=== PATIENT | female | born 1985 | race African-American/Black ===

== ENCOUNTER 2017-04-20 16:37 | Emergency (ER) | payer MEDICAID, OTHER ==
[2017-04-20 19:26] LABS: Hematocrit 38 % (35-47); Hemoglobin 12.7 g/dl (12.0-16.0); Mean Corpuscular HGB Conc 33 g/dl (31-36); Mean Corpuscular Hemoglobin 25 pg (27-31); Mean Corpuscular Volume 75 fL (80-97); Mean Platelet Volume 7 um3 (7.4-10.4); Red Blood Count 5.13 10^6/ul (4.0-5.4); Red Cell Distribution Width 16 % (10.5-15); White Blood Count 10.7 10^3/ul (3.5-10.8)
--- NOTE | 2017-04-20 19:29 | ED ---
- HPI Summary HPI Summary: 31F at 5 weeks presents with vaginal bleeding and cramping for two days. LMP 12 Feb. Her pain radiates to back. She denies any fever. She denies any recent illness. She has had nausea and vomiting last week but not currently. She states the cramping started first. The bleeding has been spotting. She states the cramping has increased in intensity. She denies any palpitations, dizziness. [facility] and was sent here for further evaluation. She has history of ectopic last year needed surgery for. - History of Current Complaint Chief Complaint: EDVaginalBleeding Stated Complaint: AND BLEEDING VAGINALLY Time Seen by Provider: 04/20/17 19:17 Pain Intensity: 4 - Allergies/Home Medications Allergies/Adverse Reactions: Allergies Allergy/AdvReac Type Severity Reaction Status Date / Time Aspirin Allergy Bleeding Verified 04/20/17 16:40 PMH/Surg Hx/FS Hx/Imm Hx Endocrine/Hematology History: Reports: Other Endocrine/Hematological Disorders - sickle cell trait Cardiovascular History: Denies: Hx Hypertension Infectious Disease History: No Infectious Disease History: Denies: Traveled Outside the [place] in Last 30 Days - Family History Known Family History: Positive: Cardiac Disease - Social History Alcohol Use: Occasionally Substance Use Type: Reports: Marijuana Substance Use Comment - Amount & Last Used: occasionally Smoking Status (MU): Light Every Day Tobacco Smoker Review of Systems Negative: Fever Positive: Abdominal Pain - cramping, Vomiting, Nausea, Other - vaginal bleeding. Negative: Diarrhea Negative: dysuria All Other Systems Reviewed And Are Negative: Yes Physical Exam - Physical Exam Triage Information Reviewed: Yes Vital Signs Reviewed: Yes Appearance: Positive: Well-Appearing Skin: Positive: Warm, Dry Head/Face: Positive: Normal Head/Face Inspection Eyes: Positive: Normal, EOMI, DAVID, Conjunctiva Clear ENT: Positive: Normal ENT inspection, Pharynx normal, TMs normal Respiratory/Lung Sounds: Positive: Clear to Auscultation, Breath Sounds Present Cardiovascular: Positive: Normal, RRR Abdomen Description: Positive: Soft, Other: - mild pelvic tenderness Bowel Sounds: Positive: Present Diagnostics - Vital Signs Vital Signs Temp Pulse Resp BP Pulse Ox 04/20/17 19:00 73 103/52 99 04/20/17 18:30 77 107/48 99 04/20/17 18:04 76 93 04/20/17 18:02 102/57 04/20/17 16:40 98.1 F 67 16 120/73 100 - Laboratory Result Diagrams: 04/20/17 19:15 04/20/17 19:15 Lab Statement: Any lab studies that have been ordered have been reviewed, and results considered in the medical decision making process. - Ultrasound No standard instances Ultrasound Interpretation: Positive (See Comments) - IMPRESSION: No gestational sac or other products of conception are identified in this otherwise normal and age-appropriate pelvic ultrasound. Diagnostic possibilities include a too early to visualize, spontaneous or ectopic . Close maternal- follow-up including serial beta hCGs is advised. Ultrasound Interpretation Completed By: Radiologist Course/Dx - Course Course Of Treatment: 31F presents with vaginal bleeding and cramping for two days. LMP 12 Feb. Her pain radiates to back. She denies any fever. She denies any recent illness. She has had nausea and vomiting last week but not currently. She states the cramping started first. The bleeding has been spotting. She states the cramping has increased in intensity. She denies any palpitations, dizziness. She had an ectopic last year that required surgery. on exam has tenderness pelvic region. h/h stable. HCG 3778. o pos so no rhogram needed. u/s does not show any products on conception. explained could be early , miscarriage or ectopic. gave script for HCG [facility] patient understands and agrees with plan. - Differential Diagnosis/HQI/PQRI: Spontaneous , Threatened , Ectopic , Intrauterine - Diagnoses Provider Diagnoses: Vaginal bleeding in Discharge - Discharge Plan Condition: Good Disposition: HOME Patient Education Materials: Threatened Miscarriage (ED) Referrals: Non Staff,Doctor [Primary Care Provider] - Veronika Shelby MD [Medical Doctor] - Additional Instructions: The education provided is for your information. ultrasound did not show any products of conception it may be too early or products may have already passed but still is potential for ectopic. [facility] as will need repeat HCG level drawn to trend in 48 hours A script has been given for blood work needs to be completed in 2 days Return to ED if develop severe abdominal pain, fever, severe bleeding with symptoms such as lightheadedness or any new or worsening symptoms
[2017-04-20 19:33] LABS: Comments Flag Yes
[2017-04-20 19:48] LABS: Albumin 3.8 g/dL (3.2-5.2); BUN/Creatinine Ratio 18.7 (8-20); Calcium 9.3 mg/dL (8.6-10.3); EGFR African American 115.2 (>60); EGFR Non-African American 89.6 (>60); Globulin 2.9 g/dL (2-4); Potassium 3.5 mmol/L (3.5-5.0); Total Bilirubin 0.2 mg/dL (0.2-1.0); Total Protein 6.7 g/dL (6.4-8.9)
[2017-04-20 19:53] LABS: Urine Bacteria Absent (Absent); Urine Bilirubin Negative (Negative); Urine Glucose Negative (Negative); Urine Nitrite Negative (Negative)
[2017-04-20 20:51] VITALS: BP 96/64
--- NOTE | 2017-04-20 21:06 | RAD ---
HISTORY: Vaginal bleeding in a female COMPARISONS: None TECHNIQUE: Multiple transverse and longitudinal ultrasound images were obtained of the pelvis using grayscale, color flow, spectral and M-mode sonographic imaging. FINDINGS: UTERUS: The uterus is normal in shape, size, contour, and echotexture. GESTATION: There is no gestational sac, pole or yolk sac identified. At the fundal height uterus there is thickening of the endometrial stripe up to 1.4 cm. Uterus is otherwise normal in appearance. CUL-DE-SAC: There is no free fluid within the cul-de-sac. RIGHT OVARY: The right ovary measures 3.0 x 2.7 x 1.6 cm. LEFT OVARY: The left ovary measures 2.2 x 1.6 x 1.3 cm. IMPRESSION: No gestational sac or other products of conception are identified in this otherwise normal and age-appropriate pelvic ultrasound. Diagnostic possibilities include a too early to visualize, spontaneous or ectopic . Close maternal- follow-up including serial beta hCGs is advised.
== END 2017-04-20 21:47 | disposition home or self-care (01) ==
LOC: ED 16:37
DX: R10.9 Unspecified abdominal pain (principal); R11.2 Nausea with vomiting, unspecified; N93.9 Abnormal uterine and vaginal bleeding, unspecified; F17.210 Nicotine dependence, cigarettes, uncomplicated
CPT/HCPCS: 36415; 76817; 80053; 81003; 81015; 84702; 85027; 86703; 86900; 86901; 99282

== ENCOUNTER 2017-05-20 20:05 | Emergency (ER) | payer MEDICAID, OTHER ==
[2017-05-20] MEDS ORDERED: NS 0.9% 1000 ML* 1,000 ML IV ONE (21:15)
[2017-05-20] MEDS ORDERED: Ondansetron INJ* 2 MG/ML VIAL IV ONE (21:15)
[2017-05-20] MEDS ORDERED: HYDROmorphone INJ* 1 MG/ML CARPUJECT SYRINGE IV SLOW PU ONE (21:15)
[2017-05-20 21:58] LABS: Hematocrit 32 % (35-47); Hemoglobin 10.9 g/dl (12.0-16.0); Mean Corpuscular HGB Conc 34 g/dl (31-36); Mean Corpuscular Hemoglobin 25 pg (27-31); Mean Corpuscular Volume 74 fL (80-97); Mean Platelet Volume 7 um3 (7.4-10.4); Red Blood Count 4.35 10^6/ul (4.0-5.4); Red Cell Distribution Width 15 % (10.5-15); White Blood Count 11.8 10^3/ul (3.5-10.8)
[2017-05-20 22:00] LABS: Comments Flag Yes
[2017-05-20 22:14] LABS: BUN/Creatinine Ratio 16.5 (8-20); C Reactive Protein 10.85 mg/L (< 5.00); Calcium 9.1 mg/dL (8.6-10.3); EGFR African American 79.9 (>60); EGFR Non-African American 62.1 (>60); Total Bilirubin 0.3 mg/dL (0.2-1.0)
[2017-05-20] MEDS ORDERED: HYDROmorphone INJ* 2 MG/ML CARPUJECT SYRINGE ONE (22:48)
[2017-05-20 22:53] LABS: Urine Bacteria Absent (Absent); Urine Bilirubin Negative (Negative); Urine Glucose Negative (Negative); Urine Nitrite Negative (Negative)
[2017-05-20] MEDS ORDERED: cefTRIAXone(*) 1 GM in NS 0.9% 50 ML* 50 ML IVPB ONE (23:13)
--- NOTE | 2017-05-20 23:32 | ED ---
Lopez Brown Rebecca, scribed for Mckayla Sierra MD on 05/20/17 at 2111 . Abdominal Pain/Female - HPI Summary HPI Summary: Pt is a 31 y/ F who presents to ED c/o RUQ abdominal pain. Pain began 1 week ago s/p surgery to treat a ruptured ectopic that was in the R fallopian tube. Pain has been present since surgery, worsening in the last few days. On discharge from the hospital on 05/14 her pain was moderate, ranked 7/ 10 and it is now severe, ranked 9/10. Pt has been taking Percocet and Hydrocodone which slightly alleviate sx. Sx aggravated by nothing. Additionally c/o SOB which has improved. PMHx asthma. - History of Current Complaint Chief Complaint: EDAbdPain Stated Complaint: RECENT EPTOPIC ERRUPTION/PAIN Time Seen by Provider: 05/20/17 20:53 Hx Obtained From: Patient Onset/Duration: Lasting Weeks - 1 week, Still Present Severity Initially: Moderate - 7/10 Severity Currently: Severe Pain Intensity: 9 Pain Scale Used: 0-10 Numeric Location: Discrete At: RUQ Radiates: No Aggravating Factor(s): Nothing Alleviating Factor(s): Medications - Percocet and Hydrocodone Associated Signs and Symptoms: Positive: Other: - SOB Allergies/Adverse Reactions: Allergies Allergy/AdvReac Type Severity Reaction Status Date / Time Aspirin Allergy Bleeding Verified 05/20/17 20:12 PMH/Surg Hx/FS Hx/Imm Hx Endocrine/Hematology History: Reports: Other Endocrine/Hematological Disorders - sickle cell trait Cardiovascular History: Denies: Hx Hypertension Psychiatric History: Reports: Hx Depression Infectious Disease History: No Infectious Disease History: Denies: Traveled Outside the [place] in Last 30 Days - Family History Known Family History: Positive: Cardiac Disease, Respiratory Disease - asthma - Social History Alcohol Use: Occasionally Substance Use Type: Reports: Marijuana Substance Use Comment - Amount & Last Used: occasionally Smoking Status (MU): Light Every Day Tobacco Smoker Review of Systems Positive: Shortness Of Breath Positive: Abdominal Pain - RUQ pain All Other Systems Reviewed And Are Negative: Yes Physical Exam - Summary Physical Exam Summary: General: Well appearing, no pain distress Skin: Warm, Skin Color Reflects Adequate Perfusion, Dry Eyes: EOMI, DAVID ENT: Pharynx normal, TMs normal Neck: Supple, nontender Respiratory: CTA, breath sounds present, no rhonchi, no wheezes, no rales Cardiovascular: RRR, no murmur, no rub, no gallop, Abdomen: Soft, tender in the RUQ and RLQ, Non-distended, no guarding, no rebound Bowel: Present Musculoskeletal: BLAIR, No edema Neuro: Sensory/motor intact, A&Ox3, CN intact 2-12 Psych: Affect/mood appropriate4 Triage Information Reviewed: Yes Vital Signs On Initial Exam: Initial Vitals Temp Pulse Resp BP Pulse Ox 98.3 F 95 16 127/72 100 05/20/17 20:08 05/20/17 20:08 05/20/17 20:08 05/20/17 20:08 05/20/17 20:08 Vital Signs Reviewed: Yes Diagnostics - Vital Signs Vital Signs Temp Pulse Resp BP Pulse Ox 05/20/17 20:08 98.3 F 95 16 127/72 100 - Laboratory Lab Results: Lab Results 05/20/17 05/20/17 05/20/17 Range/Units 21:50 21:50 21:50 WBC 11.8 H (3.5-10.8) 10^3/ul RBC 4.35 (4.0-5.4) 10^6/ul Hgb 10.9 L (12.0-16.0) g/dl Hct 32 L (35-47) % MCV 74 L (80-97) fL MCH 25 L (27-31) pg MCHC 34 (31-36) g/dl RDW 15 (10.5-15) % Plt Count 460 H (150-450) 10^3/ul MPV 7 L (7.4-10.4) um3 Neut % (Auto) 70.6 (38-83) % Lymph % (Auto) 19.4 L (25-47) % Laurens % (Auto) 7.3 (1-9) % Eos % (Auto) 1.9 (0-6) % Baso % (Auto) 0.8 (0-2) % Absolute Neuts (auto) 8.3 H (1.5-7.7) 10^3/ul Absolute Lymphs (auto) 2.3 (1.0-4.8) 10^3/ul Absolute Monos (auto) 0.9 H (0-0.8) 10^3/ul Absolute Eos (auto) 0.2 (0-0.6) 10^3/ul Absolute Basos (auto) 0.1 (0-0.2) 10^3/ul Absolute Nucleated RBC 0 10^3/ul Nucleated RBC % 0 Sodium 137 (133-145) mmol/L Potassium 4.0 (3.5-5.0) mmol/L Chloride 103 (101-111) mmol/L Carbon Dioxide 26 (22-32) mmol/L Anion Gap 8 (2-11) mmol/L BUN 17 (6-24) mg/dL Creatinine 1.03 H (0.51-0.95) mg/dL Est GFR ( Amer) 79.9 (>60) Est GFR (Non-Af Amer) 62.1 (>60) BUN/Creatinine Ratio 16.5 (8-20) Glucose 78 (70-100) mg/dL Lactic Acid 1.1 (0.5-2.0) mmol/L Calcium 9.1 (8.6-10.3) mg/dL Total Bilirubin 0.30 (0.2-1.0) mg/dL AST 24 (13-39) U/L ALT 35 (7-52) U/L Alkaline Phosphatase 77 (34-104) U/L C-Reactive Protein 10.85 H (< 5.00) mg/L Total Protein 7.0 (6.4-8.9) g/dL Albumin 4.0 (3.2-5.2) g/dL Globulin 3.0 (2-4) g/dL Albumin/Globulin Ratio 1.3 (1-3) Lipase 25 (11.0-82.0) U/L Urine Color Urine Appearance Urine pH (5-9) Ur Specific Adams (1.010-1.030) Urine Protein (Negative) Urine Ketones (Negative) Urine Blood (Negative) Urine Nitrate (Negative) Urine Bilirubin (Negative) Urine Urobilinogen (Negative) Ur Leukocyte Esterase (Negative) Urine WBC (Auto) (Absent) Urine RBC (Auto) (Absent) Ur Squamous Epith Cells (Absent) Urine Bacteria (Absent) Urine Glucose (Negative) Urine Ascorbic Acid (Negative) 05/20/17 Range/Units 22:41 WBC (3.5-10.8) 10^3/ul RBC (4.0-5.4) 10^6/ul Hgb (12.0-16.0) g/dl Hct (35-47) % MCV (80-97) fL MCH (27-31) pg MCHC (31-36) g/dl RDW (10.5-15) % Plt Count (150-450) 10^3/ul MPV (7.4-10.4) um3 Neut % (Auto) (38-83) % Lymph % (Auto) (25-47) % Laurens % (Auto) (1-9) % Eos % (Auto) (0-6) % Baso % (Auto) (0-2) % Absolute Neuts (auto) (1.5-7.7) 10^3/ul Absolute Lymphs (auto) (1.0-4.8) 10^3/ul Absolute Monos (auto) (0-0.8) 10^3/ul Absolute Eos (auto) (0-0.6) 10^3/ul Absolute Basos (auto) (0-0.2) 10^3/ul Absolute Nucleated RBC 10^3/ul Nucleated RBC % Sodium (133-145) mmol/L Potassium (3.5-5.0) mmol/L Chloride (101-111) mmol/L Carbon Dioxide (22-32) mmol/L Anion Gap (2-11) mmol/L BUN (6-24) mg/dL Creatinine (0.51-0.95) mg/dL Est GFR ( Amer) (>60) Est GFR (Non-Af Amer) (>60) BUN/Creatinine Ratio (8-20) Glucose (70-100) mg/dL Lactic Acid (0.5-2.0) mmol/L Calcium (8.6-10.3) mg/dL Total Bilirubin (0.2-1.0) mg/dL AST (13-39) U/L ALT (7-52) U/L Alkaline Phosphatase (34-104) U/L C-Reactive Protein (< 5.00) mg/L Total Protein (6.4-8.9) g/dL Albumin (3.2-5.2) g/dL Globulin (2-4) g/dL Albumin/Globulin Ratio (1-3) Lipase (11.0-82.0) U/L Urine Color Yellow Urine Appearance Cloudy Urine pH 5.0 (5-9) Ur Specific Adams 1.028 (1.010-1.030) Urine Protein 1+(30 mg/dl) H (Negative) Urine Ketones Trace H (Negative) Urine Blood 3+ H (Negative) Urine Nitrate Negative (Negative) Urine Bilirubin Negative (Negative) Urine Urobilinogen Negative (Negative) Ur Leukocyte Esterase 2+ H (Negative) Urine WBC (Auto) 2+(11-20/hpf) H (Absent) Urine RBC (Auto) 2+(6-10/hpf) H (Absent) Ur Squamous Epith Cells Present H (Absent) Urine Bacteria Absent (Absent) Urine Glucose Negative (Negative) Urine Ascorbic Acid * H (Negative) Result Diagrams: 05/20/17 21:50 05/20/17 21:50 Lab Statement: Any lab studies that have been ordered have been reviewed, and results considered in the medical decision making process. - CT CT Abd/Pel CT Interpretation Completed By: Radiologist - Pending radiologist read. See [facility] for results. Re-Evaluation - Re-Evaluation First Eval Re-Evaluation Time: 23:26 Comment: Discussed results with the pt. Abdominal Pain Fem Course/Dx - Course Course Of Treatment: 31 yo female s/p ectopic with ongoing abd pain rt lower quadrante and ruq she did have laproscopic surgery and reports there was 1l of fluid in her pelvis. She has a uti here and is being treated for such. She is awaiting a CT abd/pelvis and will be signed out to Dr. Rayo - Diagnoses Provider Diagnoses: Abdominal pain, UTI (urinary tract infection) Discharge - Discharge Plan Condition: Stable Disposition: HOME Prescriptions: Cephalexin CAP* [Keflex CAP*] 500 mg PO QID #28 cap oxyCODONE/Acetamin 10/325(NF) [Percocet 10/325 (NF)] 1 tab PO Q4H #18 tab MDD 6 Patient Education Materials: Abdominal Pain (ED), Urinary Tract Infection in Women (ED) Referrals: Non Staff,Doctor [Primary Care Provider] - 3 Days The documentation as recorded by the Lopez tadeo Rebecca accurately reflects the service I personally performed and the decisions made by me, Mckayla Sierra MD.
[2017-05-20 23:54] VITALS: BP 99/69
[2017-05-20] MEDS ORDERED: Iohexol 300* (CONTRAST) 10 ML SDV IV ONE (23:56)
--- NOTE | 2017-05-21 08:34 | RAD ---
INDICATION: Surgery for ectopic one week ago. Increasing pain. COMPARISON: April 20, 2017 TECHNIQUE: Multidetector CT images were obtained from the lung bases to the ischial tuberosities with 93 mL Omnipaque 300 IV and oral contrast. Multiplanar reformation. REPORT: Minimal basilar atelectasis. Negative for pleural effusions. The liver, gallbladder, pancreas, and spleen are unremarkable. Negative for CT abnormality of the upper GI, small bowel, retrocecal appendix, colon. Moderate stool present throughout the colon. Small volume of free pelvic fluid. Negative for free air or hernias. Normal adrenal glands. Unremarkable kidneys with symmetric nephrograms and pyelograms. Unremarkable ureters and partially distended urinary bladder. Mild rightward deviation of anteverted uterus. 1.1 cm follicle visualized at the RIGHT ovary without concern. Small volume of fluid in the cul-de-sac and RIGHT adnexal region measuring denser than water. No loculated hematoma or abscess evident. Negative for lymphadenopathy. Unremarkable abdominal aorta and iliac arteries. Physiologic partial distention of the IVC. Negative for suspicious osseous lesions. IMPRESSION: Small volume of hyperdense relative to water fluid in the cul-de-sac and RIGHT adnexal region which while nonspecific may represent blood products or may be purulent. No loculated abscess or hematoma evident.
--- NOTE | 2017-05-23 02:46 | ED ---
Kathryn Brown Edward, scribed for Lorne Rayo on 05/21/17 at 0055 . Progress - Progress Note Progress Note: Pt signed out by Dr. Sierra pending CT results. - Results/Orders Results/Orders: ABD/PEL CT - There is mild dense ascites around the uterus and left adnexa. Although mild, hte density of the ascites suggests hemorrhage. Dense ascites can also be purulent. Hemorrhagic ascites one week after srugery should be viewed with suspicion and evaluated. Ultrasound may be helpful. No bowel obstruction, free air or free fluid. Negative for diverticulitis or colitis. Normal appendix Re-Evaluation - Re-Evaluation First Eval Re-Evaluation Time: 23:26 Comment: Discussed results with the pt. 2 Comment: Discuss plan of care Course/Dx - Course Course Of Treatment: Started paging Ob-Medical Dir starting at 00:56 and they have not responded for the past hour. Spoke with Dr. Dinero @ 13:55. Dr. Dinero recommended abx and pain medications for pt to f/u as an outpatient. Pt will be d/c home. - Diagnoses Provider Diagnoses: Abdominal pain, UTI (urinary tract infection), status post ectopic surgery - Provider Notifications Discussed Care Of Patient With: Deepak Dinero Time Discussed With Above Provider: 13:55 Instructed by Provider To: Other - F/u as outpatient with pain meds and abx The documentation as recorded by the Kathryn tadeo Edward accurately reflects the service I personally performed and the decisions made by , Lorne Rayo.
== END 2017-05-21 02:06 | disposition home or self-care (01) ==
LOC: ED 20:05
DX: R10.11 Right upper quadrant pain (principal); N39.0 Urinary tract infection, site not specified; Z72.0 Tobacco use; J45.909 Unspecified asthma, uncomplicated; F32.9 Major depressive disorder, single episode, unspecified; R18.8 Other ascites; Z98.890 Other specified postprocedural states
CPT/HCPCS: 36415; 74177; 80053; 81003; 81015; 83605; 83690; 85025; 86140; 87086; 96360; 96374; 96375; 96376; 99283; J0696; J1170; J2405; Q9967

== ENCOUNTER 2018-01-10 10:22 | Emergency (ER) | payer OTHER ==
--- NOTE | 2018-01-10 12:57 | UC ---
Abdominal Pain Female HPI - HPI Summary HPI Summary: 32 y/o female presents to the urgent care c/o acute flank pain and RLQ and epigastric pain for the past 2 days. Pt reports she diarheal stool x 3 days right flank pain and abd pain - History of Current Complaint Chief Complaint: UCGeneralIllness Stated Complaint: BACK PAIN,VOMITING Time Seen by Provider: 01/10/18 12:42 Hx Obtained From: Patient Hx Last Menstrual Period: 12/19/17 Onset/Duration: Gradual Onset, Lasting Days - 2 days, Worse Since - today Timing: Intermittent Episodes Lasting: Severity Initially: Mild Severity Currently: Moderate Pain Intensity: 8 Pain Scale Used: 0-10 Numeric Location: Discrete At: RLQ, Epigastric, Other - periumbilical and RT Flank pain Radiates: Yes Radiates to: Other - pelvic pain Aggravating Factor(s): Movement Alleviating Factor(s): Vomiting - this morning bile Associated Signs and Symptoms: Positive: Nausea, Vomiting, Diarrhea - 2 days of diarrhea which resolve today - Risk Factors Ectopic Risk Factor: Prior Ectopic Ovarian Torsion Risk Factor: Reproductive Age Allergies/Adverse Reactions: Allergies Allergy/AdvReac Type Severity Reaction Status Date / Time No Known Allergies Allergy Verified 01/10/18 10:42 Home Medications: Home Medications NK [No Home Medications Reported] 01/10/18 [History Confirmed 01/10/18] PMH/Surg Hx/FS Hx/Imm Hx - Surgical History Surgical History: Yes Surgery Procedure, Year, and Place: ECTOPIC 05/16 - Family History Known Family History: Positive: Cardiac Disease, Respiratory Disease - asthma - Social History Alcohol Use: Occasionally Substance Use Type: Marijuana Substance Use Comment - Amount & Last Used: occasionally Smoking Status (MU): Current Every Day Smoker Physical Exam - Summary Physical Exam Summary: Vital Signs Reviewed: Yes General:Patient is a well developed and nourished female who is sitting comfortable in the examining table. Patient is not in any acute respiratory distress. Eyes: Positive: Conjunctiva Clear - PERRLA, EOMI, fundi grossly normal ENT: Positive: Normal ENT inspection, Hearing grossly normal, Pharynx normal, TMs normal Neck: Positive: Supple, Nontender, No Lymphadenopathy Respiratory: Positive: Chest non-tender, Lungs clear, Normal breath sounds, No respiratory distress Cardiovascular: Positive: RRR,S1 and S2 present, No Murmur, Pulses Normal, Brisk Capillary Refill Abdomen Description: Positive: Nontender, Abd: Flat with no distention. No surface trauma, scars, incisions. hyperactive bowel sounds present in all four quadrants. RLQ abdominal tenderness, w/ mild guarding, no rigidity to palpation. No masses palpated, no pulsation in epigastric area. No organomegaly. Negative [place] signs. Positive periumbilical tenderness. No rebound in the lower quadrants. Positive over McBurneys point. Posite RT CVA tenderness on percussion. Good femoral pulses bilaterally. No hernia noted. No CVAT bilaterally Musculoskeletal: Positive: Strength Intact, ROM Intact, No Edema,FROM in all major joints, no edema, no cyanosis or clubbing. Neuro: Alert and oriented x 3. No acute neurological deficits. Speech is normal. Psychological: WNL Skin: Dry and warm Triage Information Reviewed: Yes Vital Signs: Initial Vital Signs Temp 98.2 F 01/10/18 10:38 Pulse 67 01/10/18 10:38 Resp 16 01/10/18 10:38 BP 116/79 01/10/18 10:38 Pulse Ox 100 01/10/18 10:38 Abd Pain Female Course/Dx - Differential Dx/Diagnosis Differential Diagnosis: Appendicitis, Ovarian Cyst, Pelvic Inflammatory Disease , , Renal Colic, Urinary Tract Infection Provider Diagnoses: 1- Acute LLQ abdominal pain. 2-Acute Nausea and vomiting Discharge - Discharge Plan Condition: Stable Disposition: TRANS HIGHER LVL OF CARE FAC Patient Education Materials: Acute Abdominal Pain (ED) Referrals: [facility] [Outside] Additional Instructions: I think you need a higher level or care for your presenting symptoms RLQ abdominal pain. I highly recommend you to go to the ER for further evaluation and treatment. The risks of not going can be , peritonitis, ectopic , sepsis,etc. I spoke to the ER attending NIYA Brandon . They are expecting you. - Billing Disposition and Condition Condition: STABLE Disposition: Trans Higher Lvl of Care Fac
[2018-01-10 13:03] VITALS: BP 129/84
== END 2018-01-10 13:30 | disposition short-term general hospital (02) ==
LOC: UCEAST 10:22
DX: R10.32 Left lower quadrant pain (principal); R11.2 Nausea with vomiting, unspecified; F17.200 Nicotine dependence, unspecified, uncomplicated
CPT/HCPCS: 81003; 84702; 99211; G0463

== ENCOUNTER 2018-01-10 13:48 | Emergency (ER) | payer SELFPAY ==
[2018-01-10] MEDS ORDERED: Ketorolac INJ* 30 MG/ML 1 ML VIAL IV PUSH ONE (14:28)
[2018-01-10] MEDS ORDERED: Ondansetron ODT TAB* 4 MG PO ONE (14:28)
[2018-01-10 15:09] LABS: ABS Basophils 0.1 10^3/ul (0-0.2); ABS Eosinophils 0.2 10^3/ul (0-0.6); ABS Lymphocytes 2.4 10^3/ul (1.0-4.8); ABS Monocytes 0.7 10^3/ul (0-0.8); ABS Neutrophils 5.2 10^3/ul (1.5-7.7); ABS Nucleated RBC 0 10^3/ul; Eosinophil % 2.1 % (0-6); Hematocrit 42 % (35-47); Hemoglobin 13.9 g/dl (12.0-16.0); Lymphocyte % 28.1 % (25-47); Mean Corpuscular HGB Conc 33 g/dl (31-36); Mean Corpuscular Hemoglobin 24 pg (27-31); Mean Corpuscular Volume 73 fL (80-97); Mean Platelet Volume 7.3 um3 (7.4-10.4); Nucleated Red Blood Cells % 0.1; Platelet Count 358 10^3/ul (150-450); Red Blood Count 5.69 10^6/ul (4.00-5.40); Red Cell Distribution Width 15 % (10.5-15); White Blood Count 8.5 10^3/ul (3.5-10.8)
[2018-01-10 15:24] LABS: EGFR Non-African American 82.6 (>60)
[2018-01-10] MEDS ORDERED: Iohexol 300* (CONTRAST) 10 ML SDV IV ONE (15:43)
--- NOTE | 2018-01-10 17:05 | RAD ---
INDICATION: Right lower quadrant pain. COMPARISON: Comparison is made with a prior CT of the abdomen and pelvis from May 21, 2017. TECHNIQUE: A CT scan of the abdomen and pelvis was performed with intravenous and with oral contrast following intravenous injection of 93 ml of Omnipaque 300 nonionic contrast. Contiguous axial sections were obtained from the lung bases through the symphysis pubis. Images were reconstructed in the coronal and sagittal planes. FINDINGS: The lung bases are clear. No pleural effusion is present. The liver and spleen are within normal limits in size without significant focal abnormality. No calcified gallstones are seen. The pancreas appears to be within normal limits in size. The kidneys and adrenal glands are normal in size. No hydronephrosis is seen. No significant focal renal abnormality is seen. The aorta is normal in caliber and demonstrates homogeneous contrast opacification. No significant enlarged retroperitoneal lymph nodes are seen. The stomach, small and large bowel appear nondistended. The appendix is within normal limits. There are scattered diverticuli throughout the colon. There is no evidence for diverticulitis or colitis. The uterus is anteverted and normal in size. There is a 3.1 cm right ovarian cyst. The right ovary is located slightly more superior and central location than typical. The left ovary appears be in normal position. No free intraperitoneal air or fluid is seen. No significant focal osseous abnormality is seen. IMPRESSION: 1. NO EVIDENCE FOR APPENDICITIS. 2. THE RIGHT OVARY IS SOMEWHAT ATYPICAL IN LOCATION DESCRIBED WITH A 3.1 CM CYST. RECOMMEND A PELVIC ULTRASOUND FOR FURTHER EVALUATION TO EXCLUDE TORSION.
--- NOTE | 2018-01-10 17:24 | ED ---
Abdominal Pain/Female - HPI Summary HPI Summary: Patient is a 32-year-old female who presents emergency department for right- sided abdominal pain times one week. Pain is intermittent and sharp in nature. Pain became worse today the patient presented to the ER for evaluation. She denies fever, chills, upper respiratory symptoms, diarrhea, constipation, urinary symptoms, vaginal discharge or bleeding. She does admit to nausea and vomiting. She has no significant past medical history other than history of ectopic . No current modifying factors. Patient states she recently moved to the area from [facility] and does not have a PCP or SOB. - History of Current Complaint Chief Complaint: EDFlankPain Stated Complaint: RT FLANK PAIN Time Seen by Provider: 01/10/18 14:14 Hx Obtained From: Patient Hx Last Menstrual Period: 12/19/17 Pain Intensity: 8 Allergies/Adverse Reactions: Allergies Allergy/AdvReac Type Severity Reaction Status Date / Time No Known Allergies Allergy Verified 01/10/18 10:42 PMH/Surg Hx/FS Hx/Imm Hx Previously Healthy: Yes Endocrine/Hematology History: Reports: Other Endocrine/Hematological Disorders - sickle cell trait Denies: Hx Diabetes Cardiovascular History: Denies: Hx Hypertension History: Denies: Hx Dialysis, Hx Renal Disease Psychiatric History: Reports: Hx Depression - Surgical History Surgery Procedure, Year, and Place: ECTOPIC 05/16 - Immunization History Immunizations Up to Date: Yes Infectious Disease History: No Infectious Disease History: Denies: Traveled Outside the [place] in Last 30 Days - Family History Known Family History: Positive: Cardiac Disease, Respiratory Disease - asthma - Social History Alcohol Use: Occasionally Hx Substance Use: Yes Substance Use Type: Reports: None Substance Use Comment - Amount & Last Used: occasionally Hx Tobacco Use: Yes Smoking Status (MU): Current Every Day Smoker Review of Systems Constitutional: Negative Negative: Fever, Chills Eyes: Negative ENT: Negative Cardiovascular: Negative Respiratory: Negative Positive: Abdominal Pain, Vomiting, Nausea. Negative: Diarrhea Positive: flank pain. Negative: burning, dysuria, discharge, frequency Neurological: Negative All Other Systems Reviewed And Are Negative: Yes Physical Exam Triage Information Reviewed: Yes Vital Signs On Initial Exam: Initial Vitals Temp Pulse Resp BP Pulse Ox 97.8 F 63 16 134/83 99 01/10/18 13:57 01/10/18 13:57 01/10/18 13:57 01/10/18 13:57 01/10/18 13:57 Vital Signs Reviewed: Yes Appearance: Positive: Well-Appearing - Patient sitting up in bed in no acute distress. Skin: Positive: Warm, Dry Head/Face: Positive: Normal Head/Face Inspection Eyes: Positive: Normal Neck: Positive: Supple Respiratory/Lung Sounds: Positive: Clear to Auscultation, Breath Sounds Present Cardiovascular: Positive: Normal, RRR Abdomen Description: Positive: Other: - Abdomen is soft with tenderness and guarding to the right lower quadrant. No rebound tenderness. No rigidity. Neurological: Positive: Normal, CN Intact II-III Psychiatric: Positive: Affect/Mood Appropriate Diagnostics - Vital Signs Vital Signs Temp Pulse Resp BP Pulse Ox 01/10/18 13:57 97.8 F 63 16 134/83 99 - Laboratory Lab Results: Lab Results 01/10/18 01/10/18 01/10/18 Range/Units 14:46 14:46 14:46 WBC 8.5 (3.5-10.8) 10^3/ul RBC 5.69 H (4.00-5.40) 10^6/ul Hgb 13.9 (12.0-16.0) g/dl Hct 42 (35-47) % MCV 73 L (80-97) fL MCH 24 L (27-31) pg MCHC 33 (31-36) g/dl RDW 15 (10.5-15) % Plt Count 358 (150-450) 10^3/ul MPV 7.3 L (7.4-10.4) um3 Neut % (Auto) 60.9 (38-83) % Lymph % (Auto) 28.1 (25-47) % [place] % (Auto) 8.0 H (0-7) % Eos % (Auto) 2.1 (0-6) % Baso % (Auto) 0.9 (0-2) % Absolute Neuts (auto) 5.2 (1.5-7.7) 10^3/ul Absolute Lymphs (auto) 2.4 (1.0-4.8) 10^3/ul Absolute Monos (auto) 0.7 (0-0.8) 10^3/ul Absolute Eos (auto) 0.2 (0-0.6) 10^3/ul Absolute Basos (auto) 0.1 (0-0.2) 10^3/ul Absolute Nucleated RBC 0 10^3/ul Nucleated RBC % 0.1 Sodium 137 L (139-145) mmol/L Potassium 3.7 (3.5-5.0) mmol/L Chloride 103 (101-111) mmol/L Carbon Dioxide 27 (22-32) mmol/L Anion Gap 7 (2-11) mmol/L BUN 12 (6-24) mg/dL Creatinine 0.80 (0.51-0.95) mg/dL Est GFR ( Amer) 106.2 (>60) Est GFR (Non-Af Amer) 82.6 (>60) BUN/Creatinine Ratio 15.0 (8-20) Glucose 95 (70-100) mg/dL Lactic Acid 0.6 (0.5-2.0) mmol/L Calcium 9.6 (8.6-10.3) mg/dL Total Bilirubin 0.30 (0.2-1.0) mg/dL AST 26 (13-39) U/L ALT 31 (7-52) U/L Alkaline Phosphatase 80 (34-104) U/L C-Reactive Protein < 1.00 (< 5.00) mg/L Total Protein 7.3 (6.4-8.9) g/dL Albumin 4.2 (3.2-5.2) g/dL Globulin 3.1 (2-4) g/dL Albumin/Globulin Ratio 1.4 (1-3) Lipase 30 (11.0-82.0) U/L Beta HCG, Quant 0.66 mIU/mL Result Diagrams: 01/10/18 14:46 01/10/18 14:46 Lab Statement: Any lab studies that have been ordered have been reviewed, and results considered in the medical decision making process. Abdominal Pain Fem Course/Dx - Course Course Of Treatment: Patient presenting to the ER with a week history of right lower quadrant abdominal pain and intermittent nausea vomiting. She is afebrile with stable vital signs. Blood work and CT scan were ordered for further evaluation. Patient was given IV fluids, Zofran and Toradol. CBC and CMP are unremarkable. Negative . CT scan reading per radiology: IMPRESSION: 1. NO EVIDENCE FOR APPENDICITIS. 2. THE RIGHT OVARY IS SOMEWHAT ATYPICAL IN LOCATION DESCRIBED WITH A 3.1 CM CYST. RECOMMEND A PELVIC ULTRASOUND FOR FURTHER EVALUATION TO EXCLUDE TORSION. Reexamination patient's pain has improved. Results were discussed with her. Suspect right lower quadrant pain is secondary to this 3 cm cyst. Given questional possibility of ovarian torsion Will order a pelvic ultrasound for further evaluation. Suspicion for torsion is low given patient's pain has been going on for about a week and has improved. Pending urinalysis as well. Patient will be signed out to EMILY, Juan Zamora, for ultrasound and urinalysis results and appropriate disposition. - Diagnoses Differential Diagnosis: Positive: Appendicitis, Constipation, Diverticulitis, Ectopic , Ovarian Cyst, Provider Diagnoses: Ovarian cyst Discharge - Sign-Out/Discharge Documenting (check all that apply): Discharge/Admit/Transfer, Sign-Out Patient Signing out patient TO: Juan Zamora - Discharge Plan Condition: Good Disposition: HOME Patient Education Materials: Ovarian Cyst (ED) Referrals: No Primary Care Phys,NOPCP [Primary Care Provider] - Ranjana Rollins MD [Medical Doctor] - Additional Instructions: Call Dr. Rollins's office for a follow up appointment Naproxen as directed for pain Apply warm compresses to pelvis Return to ER if symptoms change or worsen - Billing Disposition and Condition Condition: GOOD Disposition: Home
[2018-01-10 17:25] LABS: Urine Appearance Clear; Urine Blood Negative (Negative); Urine Color Straw; Urine Ketones Negative (Negative); Urine Protein Negative (Negative); Urine Specific Gravity 1.006 (1.010-1.030); Urine Urobilinogen Negative (Negative)
--- NOTE | 2018-01-10 18:19 | RAD ---
INDICATION: Right ovarian cyst, evaluate for torsion. COMPARISON: Comparison is made with a prior CT of the abdomen and pelvis from January 10, 2018. TECHNIQUE: Multiple real-time transvaginal images of the pelvis were obtained. FINDINGS: The uterus is normal in size, shape and echogenicity. The uterus measured 6.0 x 3.0 x 3.7 cm. The endometrial echo measured 0.9 cm in thickness. The right ovary measured 3.4 x 2.5 x 3.7 cm. The left ovary measured 2.3 x 1.5 x 1.5 cm. There is vascular flow within both ovaries. There are 2 right ovarian cysts measuring 2.2 x 2.2 x 2.1 and 1.9 x 2.3 x 2.6. The second cyst is slightly complex. No free intraperitoneal fluid is seen. IMPRESSION: RIGHT OVARIAN CYSTS DESCRIBED, NO EVIDENCE FOR OVARIAN TORSION.
[2018-01-10 18:56] VITALS: BP 126/67
--- NOTE | 2018-01-10 20:31 | PN ---
Progress Note - Progress Note Date of Service: 01/10/18 Note: Patient was signed out to me by Aleksandr Khoury as US TV and urine was still pending. US TV negative for torsion, UA negative. CT abdomen and pelvis was negative for acute process other than ovarian cyst. Labs unremarkable. Patient discharged with diagnosis of ovarian cyst with Rx for naproxen and recommendation to follow-up with MANUGRAPHER. Patient vital signs normal and stable. Pain controlled.
== END 2018-01-10 18:56 | disposition home or self-care (01) ==
LOC: ED 13:48
DX: N83.209 Unspecified ovarian cyst, unspecified side (principal); R10.84 Generalized abdominal pain; F17.210 Nicotine dependence, cigarettes, uncomplicated; R11.2 Nausea with vomiting, unspecified
CPT/HCPCS: 36415; 74177; 76830; 80053; 81003; 83605; 83690; 84702; 85025; 86140; 96374; 99282; A9270-GY; J1885; Q9967

== ENCOUNTER 2018-04-21 11:12 | Emergency (ER) | payer OTHER ==
--- OUTSIDE RECORDS SUMMARY | 2018-04-21 11:34 | XMS REPORT ---
:1985 External Reference #:[id number] Author Organization [facility] Address [address] [place] [address] Phone [phone] Care Team Providers Name Role Phone Danial Keita MD Care Team Information Lacer And Tier Unavailable Danial Keita MD Primary Care Physician Unavailable Payers Type Date Identification Numbers Payment Provider Subscriber Health Maintenance Effective: Policy Number: Bart Hope Organization (O) 07/31/2017 [id number] [employer] Number: [id number] [id number] PayID: [id number] [place] [address] Problems Description No Information Social History Type Date Description Comments Smoking Heavy tobacco smoker (more than 10 cigarettes/day) Allergies, Adverse Reactions, Alerts Date Description Reaction Status Severity Comments 04/18/2018 NKDA active Medications Medication Date Status Form Strength Qnty SIG Indications Ordering Provider Nebulizer Set 1units disp one Blanquita Culver Up And Tubing 2018 for Neela terrazas MD use at home, dx: copd dx j45.4 last office visit 04/18/18 Ventolin HFA Aerosol 108(90Base 8gm 2 puffs Blanquita Culver 2018 ) mcg/Act every 4 Neela hours MD bulmaro needed Spacer For use with Blanquita Culver Mdi 2018 mindy Keita MD Albuterol Active Nebulizer (2.5mg/3ML 75ml one dose Blanquita Culver Sulfate 2017 ) 0.083% every 4 Neela hours MD nebulized as needed. Flovent HFA 04/18/ Active Aerosol 220mcg/Act 36gm inhale one J45.40 Danial Culver 2018 puff by Neela mouth twice MD a day Chantix 04/18/ Active Tablets 0.5mg X 11 1tabs use as F17.210 Danial Culver Starting 2018 & 1 mg X directed Neela Henderson 42 MD Chantix 04/18/ Active Tablets 1mg 56tabs 1 by mouth F17.210 Danial Culver Continuing 2018 twice a day Neela Henderson MD Prednisone / Active Tablets 20mg take 1 by Unknown 0000 mouth as one dose daily Proair HFA / Active Aerosol 108(90Base 2 puffs Unknown 0000 ) mcg/Act every 4-6 hours as needed for SOB Immunizations CPT Code Status Date Vaccine Lot # [id number] Given 04/18/2018 Tdap Tetanus, W Pertussis [id number] Given 04/18/2018 Influenza Vac, Quadrivalent, Slit Virus, [id number] Vital Signs Date Vital Result Comment 04/18/2018 BP Systolic 128 mmHg BP Diastolic 80 mmHg Heart Rate 72 /min Body Temperature 99.0 F Respiratory Rate 16 /min Height 63.5 inches 5'3.50" Weight 157.50 lb BMI (Body Mass Index) 27.5 kg/m2 Results Test Date Test Result H/L Range Note Comprehensive Metabolic Prof 04/04/2018 Sodium 139 mEq/L 134-149 Potassium 4.2 mEq/L 3.6-5.5 Chloride 107 mEq/L 94-112 Carbon Dioxide 21 mEq/L 21-32 Glucose 104 mg/dL 70-105 BUN 15 mg/dL 6-26 Creatinine 0.9 mg/dL 0.6-1.4 BUN/Creat Ratio 16.7 CALC 8.0-36.0 Calcium 9.8 mg/dL 8.6-10.2 Total Protein 7.5 g/dL 6.4-8.3 Albumin 4.9 g/dL 3.8-5.5 Globulin 2.6 g/dL 2.0-4.8 A/G Ratio 1.9 CALC 0.6-2.3 Alk. Phosphatase 91 U/L 30-110 Alt (SGPT) 26 U/L 7-35 Ast (Sgot) 22 U/L 5-34 Total Bilirubin 0.2 mg/dL 0.2-1.3 GFR Non- >60 ml/min/1.73m^ >=60 GFR >60 ml/min/1.73m^ >=60 CBC Electronic Fma 04/04/2018 WBC 8.4 x10^3/UL 4.0-10.0 RBC 5.68 x10^6/UL 3.93-6.00 HGB 13.7 g/dL 12.0-17.0 HCT 41 % 35-50 MCV 72.5 fL Low 80.0-95.0 MCH 24.1 pg Low 25.6-32.2 MCHC 33.3 g/dL 32.2-36.0 RDW-CV 16.4 % High 11.6-14.4 PLT 389 x10^3/UL 163-400 MPV 9.4 fL 9.4-12.4 Gildardo# 5.00 x10^3/UL 1.56-6.13 Lymph# 2.22 x10^3/UL 1.18-3.74 Price# 0.80 x10^3/UL 0.24-0.82 Eos # 0.3 x10^3/UL 0.0-0.5 Baso # 0.05 x10^3/UL 0.01-0.08 Gildardo% 59.7 % 34.0-70.0 Lymph % 26.5 % 20.0-52.0 Price% 9.5 % 5.0-12.0 Eos% 3.6 % 0.7-7.0 Baso% 0.6 % 0.1-1.2 Lipid Profile 04/04/2018 Cholesterol 193 mg/dL 120-200 Triglycerides 84 mg/dL 30-200 HDL Cholesterol 56 mg/dL 30-85 LDL (Calculated) 120 CALC 0-129 VLDL Cholesterol 17 mg/dL 0-50 HDL Risk Factor 3.4 CALC 0.0-4.4 Procedures Description No Information Plan of Care Future Appointment(s):05/17/2018 9:00 am - Danial Keita MD at [facility]3504/18/2018 - Danial Keita MDZ00.00 Encntr for general adult medical exam w/o abnormal findingsImmunizations/Injections:Tdap Tetanus, W PwbubndtdA36.40 Moderate persistent asthma, uncomplicatedNew Medication: Nebulizer Set Up And TubingVentolin HFA 108(90 Base) mcg/ActSpacer For MdiAlbuterol Sulfate (2.5 mg/3ML) 0.083%Flovent HFA 220 mcg/ActFollow up:one month.F17.210 Nicotine dependence, cigarettes, uncomplicatedNew Medication: Chantix Starting Month Santiago 0.5 mg X 11 & 1 mg X 42Chantix Continuing Month Santiago 1 mgAllComments:~B_~U_Medication Management~b_~u_ Patient Understands medications she's taking? Yes No Are there Barriers to Adherence? Yes No Has the patient been asked about herbal supplements and therapies, and OTC meds? Yes No
--- NOTE | 2018-04-21 12:56 | ED ---
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 Pt saw her PCP yesterday who gave her a nebulizer but it is not providing relief. Associated sx: productive cough (white phlegm). Last week, she had a fever and flu-symptoms and has been having asthmatic attacks since. She has been hospitalized for her asthma but has never had an intubation. She is a former smoker, who quit one week ago. Denies rec drugs, eTOH. She had a D&C in February for miscarriage. - History of Current Complaint Chief Complaint: EDAsthma Stated Complaint: DIFF BREATHING/ASTHMA Time Seen by Provider: 04/21/18 12:33 Hx Obtained From: Patient Onset/Duration: Lasting Days, Still Present Timing: Constant Current Severity: Severe Pain Intensity: 10 - out of 10 Character: Wheezing, Cough (Productive) Sputum Color: White Aggravating Factor(s): Recumbent Position Alleviating Factor(s): Nothing - Allergy/Home Medications Allergies/Adverse Reactions: Allergies Allergy/AdvReac Type Severity Reaction Status Date / Time No Known Allergies Allergy Verified 01/10/18 10:42 PMH/Surg Hx/FS Hx/Imm Hx Previously Healthy: No Endocrine/Hematology History: Reports: Other Endocrine/Hematological Disorders - sickle cell trait Denies: Hx Diabetes Cardiovascular History: Denies: Hx Hypertension Respiratory History: Reports: Hx Asthma History: Denies: Hx Dialysis, Hx Renal Disease Psychiatric History: Reports: Hx Depression - Surgical History Surgery Procedure, Year, and Place: ECTOPIC 05/16 - Immunization History Date of Tetanus Vaccine: 04/17/2018 Date of Influenza Vaccine: 04/17/2018 Immunizations Up to Date: Yes Infectious Disease History: No Infectious Disease History: Denies: Traveled Outside the [place] in Last 30 Days - Family History Known Family History: Positive: Cardiac Disease, Respiratory Disease - asthma - Social History Occupation: Employed Full-time Lives: With Family Alcohol Use: Occasionally Alcohol Amount: "socially" Hx Substance Use: Yes Substance Use Type: Reports: None Substance Use Comment - Amount & Last Used: occasionally Hx Tobacco Use: Yes Smoking Status (MU): Former Smoker Review of Systems Positive: Fever - last week Positive: Cough - productive, Other - pos: dyspnea All Other Systems Reviewed And Are Negative: Yes Physical Exam - Summary Physical Exam Summary: GENERAL: Patient is a well-developed and nourished F who is lying comfortable in the stretcher. Patient is not in any acute respiratory distress. HEAD AND FACE: Normocephalic EYES: PERRLA, EOMI x 2. EARS: Hearing grossly intact. MOUTH: Oropharynx within normal limits. NECK: Supple, trachea is midline, no adenopathy, no JVD, no carotid bruit. CHEST: Symmetric, no tenderness at palpation LUNGS: Very wheezy, good air entry. CVS: Regular rate and rhythm, S1 and S2 present, no murmurs or gallops appreciated. ABDOMEN: Soft, non-tender. Bowel sounds are normal. No abdominal abnormal pulsations. EXTREMITIES: Full ROM in all major joints, no edema, no cyanosis or clubbing. NEURO: Alert and oriented x 3. No acute neurological deficits. Speech is normal and follows commands. SKIN: Dry and warm Triage Information Reviewed: Yes Vital Signs On Initial Exam: Initial Vitals Temp Pulse Resp BP Pulse Ox 98.0 F 78 18 122/69 98 04/21/18 11:21 04/21/18 11:21 04/21/18 11:21 04/21/18 11:21 04/21/18 11:21 Vital Signs Reviewed: Yes Diagnostics - Vital Signs Vital Signs Temp Pulse Resp BP Pulse Ox 04/21/18 11:21 98.0 F 78 18 122/69 98 - Laboratory Result Diagrams: 04/21/18 12:56 04/21/18 12:56 Lab Statement: Any lab studies that have been ordered have been reviewed, and results considered in the medical decision making process. - Radiology CXR Xray Interpretation: No Acute Changes - IMPRESSION: No radiographic evidence of acute cardiopulmonary dz. ED provider has reviewed this report. Radiology Interpretation Completed By: Radiologist Disposition - Course Course Of Treatment: A 32 y/o F with pert PMHx: asthma presents to ED with dyspnea and asthmatic episodes for past week and worsening today. Workup is unremarkable. The patient will be discharged. I discussed results with patient and she reports feeling better. She is hemodynamically stable and safe for discharge. Strict return precautions given and she will otherwise follow up with her PCP. - Diagnoses Provider Diagnoses: Asthma exacerbation Discharge - Sign-Out/Discharge Documenting (check all that apply): Patient Departure - DC - Discharge Plan Condition: Stable Disposition: HOME Prescriptions: Azithromycin TAB* [Zithromax TAB (Z-HOMA) 250 mg #6 tabs] 2 tab PO .TODAY, THEN 1 DAILY #1 homa predniSONE [Deltasone 20 MG TAB] 40 mg PO ONCE #8 tablet Patient Education Materials: Prednisone (By mouth), Azithromycin (By mouth), Asthma (ED) Referrals: No Primary Care Phys,NOPCP [Primary Care Provider] - [facility] [Outside] Additional Instructions: Please return to ED if you experience new or worsening symptoms. - Billing Disposition and Condition Condition: STABLE Disposition: Home - Attestation Statements Document Initiated by Scribe: Yes Documenting Scribe: Melanie Kc Provider For Whom Scribe is Documenting (Include Credential): Dr. Jillian Villalta MD Scribe Attestation: I, Melanie Kc, scribed for Dr. Jillian Villalta MD on 04/22/18 at 0750. Scribe Documentation Reviewed: Yes Provider Attestation: The documentation as recorded by the Melanie tadeo accurately reflects the service I personally performed and the decisions made by me, Dr. Jillian Villalta MD
[2018-04-21] MEDS ORDERED: Azithromycin TAB* 250 MG PO ONE (13:18)
[2018-04-21] MEDS ORDERED: Albuterol/Ipratropium NEB.SOL* Albuterol 2.5 MG/Ipratropium 0.5 MG 3 ML INH ONE (13:18)
[2018-04-21] MEDS ORDERED: Dexamethasone IV* 4 MG/ML 1 ML (4 MG) IM ONE (13:18)
[2018-04-21 13:19] LABS: ABS Basophils 0.1 10^3/ul (0-0.2); ABS Eosinophils 0.1 10^3/ul (0-0.6); ABS Lymphocytes 1.8 10^3/ul (1.0-4.8); ABS Monocytes 0.5 10^3/ul (0-0.8); ABS Neutrophils 7.1 10^3/ul (1.5-7.7); ABS Nucleated RBC 0 10^3/ul; Eosinophil % 1.5 % (0-6); Hematocrit 42 % (35-47); Hemoglobin 13.9 g/dl (12.0-16.0); Lymphocyte % 18.5 % (25-47); Mean Corpuscular HGB Conc 33 g/dl (31-36); Mean Corpuscular Hemoglobin 24 pg (27-31); Mean Corpuscular Volume 72 fL (80-97); Mean Platelet Volume 7.5 um3 (7.4-10.4); Nucleated Red Blood Cells % 0; Platelet Count 322 10^3/ul (150-450); Red Blood Count 5.81 10^6/ul (4.00-5.40); Red Cell Distribution Width 16 % (10.5-15); White Blood Count 9.6 10^3/ul (3.5-10.8)
[2018-04-21 13:39] LABS: EGFR Non-African American 68.6 (>60)
[2018-04-21] MEDS ORDERED: Acetaminophen TAB* 325 MG PO ONE (14:23)
--- NOTE | 2018-04-21 16:06 | RAD ---
INDICATION: Difficulty breathing in a patient with asthma COMPARISON: None TECHNIQUE: PA and lateral views of the chest were obtained. FINDINGS: The heart and mediastinum are normal in size and contour. The lungs are grossly clear. There is no evidence of large pleural effusion. Visualized bones are normal for the patient's age. There is no radiographic evidence of free air beneath the diaphragm IMPRESSION: No radiographic evidence of acute cardiopulmonary disease.
[2018-04-21 16:26] VITALS: BP 117/69
== END 2018-04-21 16:26 | disposition home or self-care (01) ==
LOC: ED 11:12
DX: J45.901 Unspecified asthma with (acute) exacerbation (principal); Z87.891 Personal history of nicotine dependence
CPT/HCPCS: 36415; 71046; 80053; 83605; 84702; 85025; 86141; 87040; 96372; 99282; A9270-GY; J1100

== ENCOUNTER 2018-05-10 12:45 | Day surgery (SDC) | payer OTHER ==
[2018-05-10 13:28] LABS: ABS Basophils 0.1 10^3/ul (0-0.2); ABS Eosinophils 0.1 10^3/ul (0-0.6); ABS Lymphocytes 1.8 10^3/ul (1.0-4.8); ABS Monocytes 0.5 10^3/ul (0-0.8); ABS Neutrophils 6.5 10^3/ul (1.5-7.7); ABS Nucleated RBC 0 10^3/ul; Eosinophil % 0.8 % (0-6); Hematocrit 40 % (35-47); Hemoglobin 13.2 g/dl (12.0-16.0); Lymphocyte % 20.4 % (25-47); Mean Corpuscular HGB Conc 33 g/dl (31-36); Mean Corpuscular Hemoglobin 24 pg (27-31); Mean Corpuscular Volume 73 fL (80-97); Mean Platelet Volume 7.4 um3 (7.4-10.4); Nucleated Red Blood Cells % 0.3; Platelet Count 316 10^3/ul (150-450); Red Blood Count 5.51 10^6/ul (4.00-5.40); Red Cell Distribution Width 16 % (10.5-15)
[2018-05-10 13:34] LABS: EGFR Non-African American 79.2 (>60)
--- NOTE | 2018-05-10 15:20 | RAD ---
HISTORY: ABD PAIN, , EVAL FOR ECTOPIC COMPARISONS: None TECHNIQUE: Multiple transverse and longitudinal ultrasound images were obtained of the pelvis using grayscale, color Doppler, spectral Doppler imaging and M-Mode Doppler imaging using the endovaginal transducer. FINDINGS: UTERUS: The uterus is normal in shape, size, contour, and echotexture. GESTATION: No intrauterine gestation is identified. Gestational sac with pole and cardiac motion is noted adjacent to the left ovary consistent with ectopic . . The crown-rump length measures 0.51 cm for a gestational age of 6 weeks, 2 days . cardiac motion is detected at a rate of 1:15 beats per minute. Gross movement is identified. anatomy cannot be assessed secondary to early dates. CUL-DE-SAC: There is no free fluid within the cul-de-sac. RIGHT OVARY: The right ovary measures 2.6 x 1 x 1.9 cm. Normal arterial and venous waveforms are identifiable within the ovary on spectral Doppler imaging. LEFT OVARY: The left ovary measures 2.7 x 1.5 x 2.4 cm. As noted above, there is gestational sac with pole medially adjacent to the left ovary consistent with an ectopic . Normal arterial and venous waveforms are identifiable within the ovary on spectral Doppler imaging. BLADDER: The bladder is not well visualized. IMPRESSION: 1. THERE IS A GESTATIONAL SAC WITH POLE ADJACENT TO THE LEFT OVARY CONSISTENT WITH ECTOPIC AT 6 WEEKS AND 2 DAYS BY CROWN-RUMP LENGTH. 2. THERE IS NO FREE FLUID WITHIN THE PELVIS. 3. PRELIMINARY FINDINGS WERE DISCUSSED WITH DR. BILL IN THE EMERGENCY DEPARTMENT AT APPROXIMATELY 3:15 PM ON MAY 10, 2018 .
[2018-05-10 15:54] LABS: Urine Appearance Clear; Urine Blood Negative (Negative); Urine Color Yellow; Urine Ketones Trace (Negative); Urine Protein Negative (Negative); Urine Specific Gravity 1.017 (1.010-1.030); Urine Urobilinogen Negative (Negative)
[2018-05-10] MEDS ORDERED: Morphine INJ* 4 MG/ML 1 ML SYRINGE (NEW SYRINGE VERSION) IV ONE (16:16)
[2018-05-10] MEDS ORDERED: Ondansetron INJ* 2 MG/ML VIAL IV ONE (16:16)
--- NOTE | 2018-05-10 16:40 | ED ---
Abdominal Pain/Female - HPI Summary HPI Summary: This patient is a 32 year old F presenting to [facility] accompanied by friends with a chief complaint of LLQ abd pain since 2 weeks ago. Pt found out she was with a home test. She noted vaginal bleeding on 04/24/18. She notes she last ate food at 1200 (a sub). She endorses breast pain, bad cramping , and spotting. PMHx 2 miscarriages, PMHx ectopic . A2. Pt has no OB in the area. - History of Current Complaint Chief Complaint: EDAbdPain Stated Complaint: ABD PAIN Time Seen by Provider: 05/10/18 14:07 Hx Last Menstrual Period: 12/19/17 Pain Intensity: 5 Allergies/Adverse Reactions: Allergies Allergy/AdvReac Type Severity Reaction Status Date / Time No Known Allergies Allergy Verified 05/10/18 12:52 Home Medications: Home Medications Albuterol HFA INHALER* [Ventolin HFA Inhaler*] 2 puff INH Q6H PRN 05/10/18 [ History Confirmed 05/10/18] Naproxen [Naproxen 500 mg tab] 500 mg PO BID PRN 05/10/18 [History Confirmed 06/17] PMH/Surg Hx/FS Hx/Imm Hx Endocrine/Hematology History: Reports: Other Endocrine/Hematological Disorders - sickle cell trait Denies: Hx Diabetes Cardiovascular History: Denies: Hx Hypertension Respiratory History: Reports: Hx Asthma History: Reports: Other Problems/Disorders - ectopic Denies: Hx Dialysis, Hx Renal Disease Sensory History: Denies: Hx Legally Blind, Hx Deafness Opthamlomology History: Denies: Hx Legally Blind EENT History: Denies: Hx Deafness Neurological History: Denies: Hx Dementia Psychiatric History: Reports: Hx Depression - Surgical History Surgery Procedure, Year, and Place: ECTOPIC 05/16 - Immunization History Date of Tetanus Vaccine: 04/17/2018 Date of Influenza Vaccine: 04/17/2018 Immunizations Up to Date: Yes Infectious Disease History: No Infectious Disease History: Denies: Traveled Outside the [place] in Last 30 Days - Family History Known Family History: Positive: Cardiac Disease, Respiratory Disease - asthma - Social History Occupation: Employed Full-time Alcohol Use: Occasionally Alcohol Amount: "socially" Hx Substance Use: Yes Substance Use Type: Reports: None Substance Use Comment - Amount & Last Used: occasionally Hx Tobacco Use: Yes Smoking Status (MU): Former Smoker Review of Systems Negative: Fever, Chills Negative: Erythema Negative: Sore Throat Negative: Chest Pain Negative: Shortness Of Breath, Cough Positive: Abdominal Pain - cramping. Negative: Vomiting, Nausea Positive: discharge - blood, other - . Negative: dysuria, hematuria Positive: Other - sore breasts Negative: Rash Neurological: Other - NEGATIVE: Dizziness All Other Systems Reviewed And Are Negative: Yes Physical Exam - Summary Physical Exam Summary: Constitutional: Well-developed, Well-nourished, Alert. (-) Distressed Skin: Warm, Dry HENT: Normocephalic; Atraumatic Eyes: Conjunctiva normal Neck: Musculoskeletal ROM normal neck. (-) JVD, (-) Stridor, (-) Tracheal deviation Cardio: Rhythm regular, rate normal, Heart sounds normal; Intact distal pulses; The pedal pulses are 2+ and symmetric. Radial pulses are 2+ and symmetric. (-) Murmur Pulmonary/Chest wall: Effort normal. (-) Respiratory distress, (-) Wheezes, (-) Rales Abd: Soft, (-) epigastric tenderness, (-) Distension, (-) Guarding, (-) Rebound Musculoskeletal: (-) Edema Lymph: (-) Cervical adenopathy Neuro: Alert, Oriented x3 Psych: Mood and affect Normal Triage Information Reviewed: Yes Vital Signs On Initial Exam: Initial Vitals Temp Pulse Resp BP Pulse Ox 98.2 F 84 17 127/76 98 05/10/18 12:48 05/10/18 12:48 05/10/18 12:48 05/10/18 12:48 05/10/18 12:48 Vital Signs Reviewed: Yes Diagnostics - Vital Signs Vital Signs Temp Pulse Resp BP Pulse Ox 05/10/18 16:28 18 05/10/18 12:48 98.2 F 84 17 127/76 98 - Laboratory Lab Results: Lab Results 05/10/18 05/10/18 05/10/18 Range/Units 13:06 13:06 13:06 WBC 9.0 (3.5-10.8) 10^3/ul RBC 5.51 H (4.00-5.40) 10^6/ul Hgb 13.2 (12.0-16.0) g/dl Hct 40 (35-47) % MCV 73 L (80-97) fL MCH 24 L (27-31) pg MCHC 33 (31-36) g/dl RDW 16 H (10.5-15) % Plt Count 316 (150-450) 10^3/ul MPV 7.4 (7.4-10.4) um3 Neut % (Auto) 72.4 (38-83) % Lymph % (Auto) 20.4 L (25-47) % Pecos % (Auto) 5.7 (0-7) % Eos % (Auto) 0.8 (0-6) % Baso % (Auto) 0.7 (0-2) % Absolute Neuts (auto) 6.5 (1.5-7.7) 10^3/ul Absolute Lymphs (auto) 1.8 (1.0-4.8) 10^3/ul Absolute Monos (auto) 0.5 (0-0.8) 10^3/ul Absolute Eos (auto) 0.1 (0-0.6) 10^3/ul Absolute Basos (auto) 0.1 (0-0.2) 10^3/ul Absolute Nucleated RBC 0 10^3/ul Nucleated RBC % 0.3 Sodium 137 (135-145) mmol/L Potassium 3.5 (3.5-5.0) mmol/L Chloride 105 (101-111) mmol/L Carbon Dioxide 23 (22-32) mmol/L Anion Gap 9 (2-11) mmol/L BUN 12 (6-24) mg/dL Creatinine 0.83 (0.51-0.95) mg/dL Est GFR ( Amer) 95.8 (>60) Est GFR (Non-Af Amer) 79.2 (>60) BUN/Creatinine Ratio 14.5 (8-20) Glucose 136 H (70-100) mg/dL Lactic Acid 0.7 (0.5-2.0) mmol/L Calcium 9.2 (8.6-10.3) mg/dL Total Bilirubin 0.50 (0.2-1.0) mg/dL AST 20 (13-39) U/L ALT 28 (7-52) U/L Alkaline Phosphatase 71 (34-104) U/L C-Reactive Protein 2.54 (<8.01) mg/L Total Protein 6.9 (6.4-8.9) g/dL Albumin 4.2 (3.2-5.2) g/dL Globulin 2.7 (2-4) g/dL Albumin/Globulin Ratio 1.6 (1-3) Lipase 20 (11.0-82.0) U/L Beta HCG, Quant 4139.00 mIU/mL Urine Color Urine Appearance Urine pH (5-9) Ur Specific Alexis (1.010-1.030) Urine Protein (Negative) Urine Ketones (Negative) Urine Blood (Negative) Urine Nitrate (Negative) Urine Bilirubin (Negative) Urine Urobilinogen (Negative) Ur Leukocyte Esterase (Negative) Urine Glucose (Negative) Urine Ascorbic Acid (Negative) 05/10/18 Range/Units 15:18 WBC (3.5-10.8) 10^3/ul RBC (4.00-5.40) 10^6/ul Hgb (12.0-16.0) g/dl Hct (35-47) % MCV (80-97) fL MCH (27-31) pg MCHC (31-36) g/dl RDW (10.5-15) % Plt Count (150-450) 10^3/ul MPV (7.4-10.4) um3 Neut % (Auto) (38-83) % Lymph % (Auto) (25-47) % Pecos % (Auto) (0-7) % Eos % (Auto) (0-6) % Baso % (Auto) (0-2) % Absolute Neuts (auto) (1.5-7.7) 10^3/ul Absolute Lymphs (auto) (1.0-4.8) 10^3/ul Absolute Monos (auto) (0-0.8) 10^3/ul Absolute Eos (auto) (0-0.6) 10^3/ul Absolute Basos (auto) (0-0.2) 10^3/ul Absolute Nucleated RBC 10^3/ul Nucleated RBC % Sodium (135-145) mmol/L Potassium (3.5-5.0) mmol/L Chloride (101-111) mmol/L Carbon Dioxide (22-32) mmol/L Anion Gap (2-11) mmol/L BUN (6-24) mg/dL Creatinine (0.51-0.95) mg/dL Est GFR ( Amer) (>60) Est GFR (Non-Af Amer) (>60) BUN/Creatinine Ratio (8-20) Glucose (70-100) mg/dL Lactic Acid (0.5-2.0) mmol/L Calcium (8.6-10.3) mg/dL Total Bilirubin (0.2-1.0) mg/dL AST (13-39) U/L ALT (7-52) U/L Alkaline Phosphatase (34-104) U/L C-Reactive Protein (<8.01) mg/L Total Protein (6.4-8.9) g/dL Albumin (3.2-5.2) g/dL Globulin (2-4) g/dL Albumin/Globulin Ratio (1-3) Lipase (11.0-82.0) U/L Beta HCG, Quant mIU/mL Urine Color Yellow Urine Appearance Clear Urine pH 6.0 (5-9) Ur Specific Alexis 1.017 (1.010-1.030) Urine Protein Negative (Negative) Urine Ketones Trace A (Negative) Urine Blood Negative (Negative) Urine Nitrate Negative (Negative) Urine Bilirubin Negative (Negative) Urine Urobilinogen Negative (Negative) Ur Leukocyte Esterase Negative (Negative) Urine Glucose Negative (Negative) Urine Ascorbic Acid * A (Negative) Result Diagrams: 05/10/18 13:06 05/10/18 13:06 Lab Statement: Any lab studies that have been ordered have been reviewed, and results considered in the medical decision making process. - Ultrasound No standard instances Ultrasound Interpretation: Positive (See Comments) Ultrasound Interpretation Completed By: Radiologist - US TV: 1. THERE IS A GESTATIONAL SAC WITH POLE ADJACENT TO THE LEFT OVARY CONSISTENT WITH ECTOPIC AT 6 WEEKS AND 2 DAYS BY CROWN-RUMP LENGTH. 2. THERE IS NO FREE FLUID WITHIN THE PELVIS. Dr. House has reviewed this report. Abdominal Pain Fem Course/Dx - Course Course Of Treatment: A 32-year-old F presents to the ED with a CC of left sided abd pain for 2 weeks. (+) home test, vaginal bleeding, cramping, breast pain. A2, PMHx ectopic , emergency shx for it 04/2017. US TV : 1. THERE IS A GESTATIONAL SAC WITH POLE ADJACENT TO THE LEFT OVARY CONSISTENT WITH ECTOPIC AT 6 WEEKS AND 2 DAYS BY CROWN-RUMP LENGTH. 2. THERE IS NO FREE FLUID WITHIN THE PELVIS. In the ED course, pt was given morphine and zofran. Pt labs show high RBC, low MCV, low MCH, high RDW, low lymph %, high glucose, Beta HCG quant at 4139, and trace ketones and ascorbic acid in her urine. - Diagnoses Provider Diagnoses: Ectopic - Provider Notifications Discussed Care Of Patient With: Veronika Shelby Time Discussed With Above Provider: 16:00 Instructed by Provider To: Other - will see pt in ED, accepts surgical admission. Discharge - Sign-Out/Discharge Documenting (check all that apply): Patient Departure - admit - Discharge Plan Condition: Stable Disposition: ADMITTED TO [facility] - Billing Disposition and Condition Condition: STABLE Disposition: Admitted to [facility] - Attestation Statements Document Initiated by Scribe: Yes Documenting Scribe: Nicho Bolanos Provider For Whom Scribe is Documenting (Include Credential): Tony House MD Scribe Attestation: Cici Brown Simon, scribed for Tony House MD on 05/17/18 at 0901. Scribe Documentation Reviewed: Yes Provider Attestation: The documentation as recorded by the Cici tadeo Simon accurately reflects the service I personally performed and the decisions made by Harsh rubin Jerry MD
--- NOTE | 2018-05-10 16:41 | HP ---
H&P (Free Text) History and Physical: CC: ectopic HPI: pt says she had a normal period at the end of Mar and was in the ED 3wks ago for an asthma attack and had a negative test. However she noticed that she had some breast tenderness and was having some spotting lately as well as minimal cramping. Last night she developed some LLQ pain and had difficulty sleeping. She did a home test that was positive and came here. Sono confirms left ectopic , 6wk size with +slow FHR. She had a ruptured ectopic last year with removal of her right tube. They have been trying for 6yrs to get and she has a consult arranged with a fertility specialist next week. 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 No free fluid in the pelvic. Normal appearing ovaries and uterus. VS: stable Labs: WNL Exam: Gen: pt is teary Abd: soft, mod LLQ tenderness Ext: no edema A: 32yo with 6wk size ectopic with +FHR. H/o right salpingectomy for prior ectopic . The risks/benefits of surgical or medical treatment were reviewed with the patient and she opts for medical management. She understands that there is a high likelihood of removing her left tube which means she will need to pursue IVF for a future desired . P: NPO Pain Management Lap removal left ectopic , possible salpingectomy
[2018-05-10] MEDS ORDERED: Mouth Piece, Nicotine* 1 EACH CARTRIDGE INH PRN (17:16)
[2018-05-10] MEDS ORDERED: Nicotine Inhaler* 10 MG AMP INH ONE (17:16)
[2018-05-10] MEDS ORDERED: Nicotine Inhaler* 10 MG AMP ONE (17:18)
[2018-05-10] MEDS ORDERED: Mouth Piece, Nicotine* 1 EACH CARTRIDGE ONE (17:18)
[2018-05-10] MEDS ORDERED: Dexamethasone IV* 4 MG/ML 1 ML (4 MG) ONE (19:40)
[2018-05-10] MEDS ORDERED: Famotidine IV* 10 MG/ML 2 ML (20 mg) ONE (19:40)
[2018-05-10] MEDS ORDERED: Dexamethasone IV* 4 MG/ML 1 ML (4 MG) IV SLOW PU ONE (19:41)
[2018-05-10] MEDS ORDERED: Famotidine IV* 10 MG/ML 2 ML (20 mg) IV SLOW PU ONE (19:41)
[2018-05-10] MEDS ORDERED: Morphine INJ* 2 MG/ML 1 ML SYRINGE (TWO MG - NEW SYRINGE VERSION) IV PRN (19:41)
[2018-05-10] MEDS ORDERED: Morphine VIAL* 4 MG/ML VIAL (1 ml vial) IV ONE (19:45)
[2018-05-10] MEDS ORDERED: Propofol* 10 MG/ML 20 ML BTL IV PUSH ONE (19:46)
[2018-05-10] MEDS ORDERED: Rocuronium* 10 MG/ML VIAL ONE (19:47)
[2018-05-10] MEDS ORDERED: fentaNYL* 50 MCG/ML 2 ML VIAL (100 MCG VIAL) ONE ×3 (19:47→22:40)
[2018-05-10] MEDS ORDERED: Lidocaine 2% PF * 5 ML VIAL ONE (19:47)
[2018-05-10] MEDS ORDERED: Bupivacaine 0.25% SDV* 30 ML ONE (20:33)
[2018-05-10] MEDS ORDERED: Naloxone* 0.4 MG/ML 1 ML VIAL IV PRN (21:33)
[2018-05-10] MEDS ORDERED: oxyCODONE/Acetamin 5/325 MG* TAB PO PRN ×3 (21:33→22:18)
[2018-05-10] MEDS ORDERED: DiMENhydriNATE IV* 50 MG/ML VIAL IV PUSH PRN (21:33)
[2018-05-10] MEDS ORDERED: Ondansetron INJ* 2 MG/ML VIAL ONE (21:40)
[2018-05-10] MEDS ORDERED: Ketorolac INJ* 30 MG/ML 1 ML VIAL ONE (21:42)
[2018-05-10] MEDS ORDERED: Neostigmine Methylsulfate* 1 MG/ML 10 ML VIAL (1 mg/ml) ONE (21:43)
[2018-05-10] MEDS ORDERED: Glycopyrrolate IV* 0.2 MG/ML 1 ML VIAL ONE (21:43)
[2018-05-10] MEDS ORDERED: Ibuprofen TAB* 600 MG PO PRN (22:18)
[2018-05-10] MEDS ORDERED: oxyCODONE/Acetamin 5/325 MG* TAB ONE (22:40)
[2018-05-10] MEDS ORDERED: Ibuprofen TAB* 600 MG ONE (22:41)
[2018-05-10] MEDS ORDERED: DiMENhydriNATE IV* 50 MG/ML VIAL ONE (22:42)
[2018-05-10] MEDS: fentaNYL* 50 MCG/ML 2 ML VIAL (100 MCG VIAL) IV PRN ×2 (22:45→23:00)
[2018-05-10 23:16] VITALS: BP 119/72
--- NOTE | 2018-05-11 11:59 | OP ---
OPERATIVE NOTE: DATE OF OPERATION: 05/10/18 - SDS DATE OF : [birth year] SURGEON: Veronika Shelby MD [facility] PR[employer]ER: Deepak Dinero MD ANESTHESIA: General endotracheal. PRE-OP DIAGNOSIS: Left ectopic , positive heart rate, the patient opts for surgical management. POST-OP DIAGNOSIS: Left ectopic , positive heart rate, the patient opts for surgical management. OPERATIVE PROCEDURE: Laparoscopic left salpingectomy. COMPLICATIONS: None. FLUIDS: Crystalloid. DRAINS: 100 cc clear urine drained prior to the procedure. FINDINGS: Left ectopic within the tube. Normal-appearing ovaries. Normal-appearing uterus. Absent right tube. DESCRIPTION OF PROCEDURE: After informed consent was signed, the patient was taken to the operating room where she was given general anesthesia that was found to be adequate. SCDs were placed on her legs. She was prepped and draped in the dorsal lithotomy position in the [facility]. Her bladder was drained of urine. A speculum was placed into the vagina to expose the cervix. The anterior lip of the cervix was grasped with a single-tooth tenaculum and the Hydrophilka manipulator was inserted. The speculum was removed and gloves were changed and attention was turned to the abdomen. The infraumbilical fold was injected with 0.5% Marcaine with epinephrine and a 10-mm incision was made with the scalpel. Blunt dissection was carried down to the fascia and the fascia was grasped with 2 Mauri clamps, tented up, and incised in the midline. The fascial incision was extended with Mauri clamps. Blunt dissection was used to enter the abdominal cavity. Stay sutures were placed in the fascia on either side. The trocar was then inserted and held in place with the stay sutures. The camera was inserted and on entrance into the abdominal cavity, the uterus was noted with ectopic in the left tube, absent right tube was noted. Two lateral ports were made 5 mm in length. First, 0.5% Marcaine with epinephrine was injected followed by an incision made with the scalpel and insertion of a 5-mm trocar on first the left and then the right side. The LigaSure device was inserted and the tube was grasped and the LigaSure device was used to clamp, cauterize, and cut through the mesosalpinx along the length of the tube and then across the proximal portion of the tube. The camera was then switched to a 5-mm camera, which was inserted into the left lateral port. A 10-mm EndoCatch bag was inserted and the specimen was placed into the EndoCatch bag and removed from the abdominal cavity. The trocar was removed under direct visualization and the abdomen was deflated and the stay suture was tied to reapproximate the umbilical incision and 4-0 Vicryl was used to close the umbilical incision and surgical glue was used to close the lateral incisions and put over the umbilical incision. The patient was cleaned, placed back into the supine position. The Hulka manipulator was removed. She was awakened from anesthesia, and moved to the recovery room in stable condition. [id number]/[facility] #: [id number] DARIANA
== END 2018-05-10 19:15 | disposition home or self-care (01) ==
LOC: ED 12:45 → OR 19:15
PROVIDERS: ATTEND Obstetrics & Gynecology
DX: O00.102 Left tubal pregnancy without intrauterine pregnancy (principal); R10.32 Left lower quadrant pain; N94.89 Other specified conditions associated with female genital organs and menstrual cycle; Z72.0 Tobacco use; J45.909 Unspecified asthma, uncomplicated; D57.3 Sickle-cell trait
CPT/HCPCS: 36415; 76817; 80053; 81003; 83605; 83690; 84702; 85025; 86140; 88305; 99283; A9270-GY; J1100; J1240; J1885; J2270; J2405; J2704; J2710; J3010

== ENCOUNTER 2019-02-08 11:41 | Inpatient (IN) | payer OTHER ==
[2019-02-08] MEDS ORDERED: Albuterol/Ipratropium NEB.SOL* Albuterol 2.5 MG/Ipratropium 0.5 MG 3 ML INH ONE (11:52)
[2019-02-08] MEDS ORDERED: methylPREDNISolone 125 MG* 2 ML VIAL IV ONE (11:52)
--- NOTE | 2019-02-08 11:56 | ED ---
Asthma - HPI Summary HPI Summary: A 33 y/o female presents to [facility] with a chief complaint of asthma exacerbation. She reportedly has been having SOB intermittently for the past month. At triage the patient rated her pain as a 6/10 and c/o sore throat. She says that he keeps coughing up yellow phlegm even after taking her medications and using inhalers. Wrist surgery. Some smoking and drinking, no drugs. FHx of asthma, HTN, DM. - History of Current Complaint Chief Complaint: EDAsthma Stated Complaint: SHORT OF BREATH , ASTHMA PER PT Time Seen by Provider: 02/08/19 11:51 Hx Obtained From: Patient Hx Last Menstrual Period: 12/19/17 Onset/Duration: Sudden Onset, Lasting Weeks, Still Present Timing: Intermittent Episode Lasting Initial Severity: Moderate Current Severity: Moderate Pain Intensity: 6 Pain Scale Used: 0-10 Numeric Aggravating Symptoms: Nothing Alleviating Symptoms: Nothing Associated Signs and Symptoms: Positive: Shortness of Breath - Allergy/Home Medications Allergies/Adverse Reactions: Allergies Allergy/AdvReac Type Severity Reaction Status Date / Time No Known Allergies Allergy Verified 02/08/19 11:48 PMH/Surg Hx/FS Hx/Imm Hx Endocrine/Hematology History: Reports: Other Endocrine/Hematological Disorders - sickle cell trait Denies: Hx Diabetes Cardiovascular History: Denies: Hx Hypertension Respiratory History: Reports: Hx Asthma History: Reports: Other Problems/Disorders - ectopic Denies: Hx Dialysis, Hx Renal Disease Sensory History: Denies: Hx Legally Blind, Hx Deafness Opthamlomology History: Denies: Hx Legally Blind Neurological History: Denies: Hx Dementia Psychiatric History: Reports: Hx Depression - Surgical History Surgery Procedure, Year, and Place: ECTOPIC 05/16 - Immunization History Date of Tetanus Vaccine: 04/17/2018 Date of Influenza Vaccine: 04/17/2018 Infectious Disease History: No Infectious Disease History: Denies: Traveled Outside the [place] in Last 30 Days - Family History Known Family History: Positive: Cardiac Disease, Hypertension, Diabetes, Respiratory Disease - asthma - Social History Alcohol Use: Occasionally Alcohol Amount: "socially" Hx Substance Use: Yes Substance Use Type: Reports: None Substance Use Comment - Amount & Last Used: occasionally Hx Tobacco Use: Yes Smoking Status (MU): Former Smoker Review of Systems Negative: Fever Positive: Sore Throat Positive: Shortness Of Breath, Cough All Other Systems Reviewed And Are Negative: Yes Physical Exam - Summary Physical Exam Summary: VITAL SIGNS: Reviewed. GENERAL: Patient is a well-developed and nourished FEMALE who is lying comfortable in the stretcher. Patient is not in any acute respiratory distress. HEAD AND FACE: No signs of trauma. No ecchymosis, hematomas or skull depressions. No sinus tenderness. EYES: PERRLA, EOMI x 2, No injected conjunctiva, no nystagmus. EARS: Hearing grossly intact. Ear canals and tympanic membranes are within normal limits. MOUTH: pharyngeal erythema NECK: Supple, trachea is midline, no adenopathy, no JVD, no carotid bruit, no c- spine tenderness, neck with full ROM. CHEST: Symmetric, no tenderness at palpation. LUNGS: Diffuse expiratory wheezing CVS: Regular rate and rhythm, S1 and S2 present, no murmurs or gallops appreciated. ABDOMEN: Soft, non-tender. No signs of distention. No rebound, no guarding, and no masses palpated. Bowel sounds are normal. EXTREMITIES: FROM in all major joints, no edema, no cyanosis or clubbing. NEURO: Alert and oriented x 3. No acute neurological deficits. Speech is normal and follows commands. SKIN: Dry and warm. Triage Information Reviewed: Yes Vital Signs On Initial Exam: Initial Vitals Temp Pulse Resp BP Pulse Ox 99.1 F 103 16 133/99 95 02/08/19 11:45 02/08/19 11:45 02/08/19 11:45 02/08/19 11:45 02/08/19 11:45 Vital Signs Reviewed: Yes Diagnostics - Vital Signs Vital Signs Temp Pulse Resp BP Pulse Ox 02/08/19 11:45 99.1 F 103 16 133/99 95 - Laboratory Result Diagrams: 02/09/19 07:56 02/09/19 07:56 Lab Statement: Any lab studies that have been ordered have been reviewed, and results considered in the medical decision making process. - Radiology CXR Radiology Interpretation Completed By: Radiologist Summary of Radiographic Findings: NO ACTIVE CARDIOPULMONARY DISEASE. ED physician has reviewed this imaging report. Re-Evaluation - Re-Evaluation First Eval Re-Evaluation Time: 15:15 Change: Unchanged Comment: Diffuse exertional wheezing Asthma Course/Dx - Course Assessment/Plan: A 33 y/o female presents to [facility] with a chief complaint of asthma exacerbation. She reportedly has been having SOB intermittently for the past month. At triage the patient rated her pain as a 6/10 and c/o sore throat. She says that he keeps coughing up yellow phlegm even after taking her medications and using inhalers. Wrist surgery. Some smoking and drinking, no drugs. FHx of asthma, HTN, DM. Blood work without any significant abnormality except for WBCs of 15.7, MCV 72, absolute neutrophils 10.8, glucose 109. And CRP is normal and BMP is normal. In the ED course we obtained an IV access, the patient was given Solu-Medrol, multiple DuoNeb. Patient was given additional DuoNeb and magnesium. The patient has diffuse wheezing and shortness of breath. Chest x-ray shows no acute pathology. Because of the symptoms I discussed my physical exam and findings with Dr. Alvarado from the hospital services who accepted the patient for admission. Patient is hemodynamically stable alert oriented 3. - Diagnoses Provider Diagnoses: Asthma exacerbation - Provider Notifications Discussed Care Of Patient With: Cheryl Alvarado Time Discussed With Above Provider: 15:02 Instructed by Provider To: Admit As Inpatient - will consult with the patient first Discharge - Sign-Out/Discharge Documenting (check all that apply): Patient Departure - admit Patient Received Moderate/Deep Sedation with Procedure: No - Discharge Plan Condition: Fair Disposition: ADMITTED TO [facility] - Billing Disposition and Condition Condition: FAIR Disposition: Admitted to [facility] - Attestation Statements Document Initiated by Lissette: Yes Documenting Scribe: Nadir Mark Provider For Whom Lissette is Documenting (Include Credential): Felipe Mayfield MD Scribe Attestation: INadir, scribed for Felipe Mayfield MD on 02/09/19 at 1048. Scribe Documentation Reviewed: Yes Provider Attestation: The documentation as recorded by the Nadir tadeo accurately reflects the service I personally performed and the decisions made by , Felipe Mayfield MD Status of Scribe Document: Viewed
[2019-02-08 12:27] LABS: ABS Basophils 0.1 10^3/ul (0-0.2); ABS Lymphocytes 3.5 10^3/ul (1.0-4.8); ABS Monocytes 1.3 10^3/ul (0-0.8); ABS Neutrophils 10.8 10^3/ul (1.5-7.7); Eosinophil % 0.1 %; Hematocrit 41 % (35-47); Hemoglobin 13.7 g/dL (12.0-16.0); Lymphocyte % 22.2 %; Mean Corpuscular HGB Conc 33 g/dL (31-36); Mean Corpuscular Hemoglobin 24 pg (27-31); Mean Corpuscular Volume 72 fL (80-97); Mean Platelet Volume 7.3 fL (7.4-10.4); Nucleated Red Blood Cells % 0.1; Platelet Count 349 10^3/uL (150-450); Red Cell Distribution Width 16 % (10-15); White Blood Count 15.7 10^3/uL (3.5-10.8)
[2019-02-08 12:37] LABS: Albumin 4.2 g/dL (3.2-5.2); Albumin/Globulin Ratio 1.3 (1-3); BUN/Creatinine Ratio 19.7 (8-20); C Reactive Protein 2.52 mg/L (<8.01); Calcium 9.6 mg/dL (8.6-10.3); EGFR African American 105.4 (>60); EGFR Non-African American 87.1 (>60); Globulin 3.2 g/dL (2-4); Potassium 3.6 mmol/L (3.5-5.0); Total Bilirubin 0.5 mg/dL (0.2-1.0); Total Protein 7.4 g/dL (6.4-8.9)
[2019-02-08] MEDS ORDERED: diPHENhydraMINE PO* 25 MG PO ONE (13:15)
[2019-02-08] MEDS: Albuterol/Ipratropium NEB.SOL* Albuterol 2.5 MG/Ipratropium 0.5 MG 3 ML INH SCH ×3 (14:15→14:51)
[2019-02-08] MEDS ORDERED: Magnesium Sulfate 2 GM IV* 2 GM/50 ML BAG IVPB ONE (14:43)
[2019-02-08] MEDS ORDERED: Morphine 4 MG/ML VIAL (1 ml) 4 MG/ML VIAL IV ONE (15:34)
[2019-02-08] MEDS ORDERED: Acetaminophen TAB* 325 MG PO PRN (16:25)
[2019-02-08 18:00] LABS: Urine Appearance Cloudy; Urine Bacteria 1+ (Absent); Urine Bilirubin Negative (Negative); Urine Blood 3+ (Negative); Urine Color Yellow; Urine Glucose Negative (Negative); Urine Ketones Negative (Negative); Urine Nitrite Negative (Negative); Urine Protein 1+(30 mg/dL) (Negative); Urine Red Blood Cell 2+(6-10/hpf) (Absent); Urine Specific Gravity 1.029 (1.010-1.030); Urine Squamous Epithelial Cell Present (Absent); Urine Urobilinogen Negative (Negative); Urine White Blood Cell Trace(0-5/hpf) (Absent)
[2019-02-08] MEDS: NS 0.9% 1000 ML** 1,000 ML IV SCH (18:25)
[2019-02-08] MEDS: cefTRIAXone(*) 1 GM in NS 0.9% 50 ML* 50 ML IVPB SCH (18:39)
[2019-02-08] MEDS ORDERED: Ketorolac INJ* 15 MG/ML 1 ML VIAL IV PUSH ONE (18:43)
--- NOTE | 2019-02-08 19:21 | HP ---
HISTORY AND PHYSICAL: DATE OF ADMISSION: 02/08/19 PROVIDER: Sharmin Harris NP PRIMARY CARE PROVIDER: None. ATTENDING PHYSICIAN WHILE IN THE HOSPITAL: Dr. Cheryl Alvarado* (dictated by Sharmin Harris NP). CHIEF COMPLAINT: Asthma and shortness of breath. HISTORY OF PRESENT ILLNESS: Ms. Hope is a 33-year-old female with past medical history significant for asthma, who presented to the emergency room with complaints of worsening shortness of breath. The patient reports that she usually has asthma exacerbations during the winter, but over the past couple months, she has had more frequent exacerbations of her asthma. She does report that she was seen in urgent care on 02/04/19 and at that time they gave her a prescription for DuoNeb and placed her on prednisone taper and felt that her exacerbation was related to allergies. The patient reports that she continues to have progressively worsening shortness of breath, so presented to the emergency room for further evaluation. She also reports that she is unable to sleep at night and she has significant amount of coughing that has been productive with brown yellow secretions and had to sleep sitting up on the couch due to her shortness of breath. The patient also reports lower abdominal pain radiating to bilateral flanks that started today. While in the emergency room, the patient had routine lab work drawn. She was found to have leukocytosis with white count of 15.7. She was given several nebulizers and Solu-Medrol 125 with some improvement. The patient does report some improvement of her symptoms. PAST MEDICAL HISTORY: Asthma. PAST SURGICAL HISTORY: Left wrist surgery, 3 miscarriages, bilateral fallopian tubes removed. HOME MEDICATIONS: 1. Albuterol inhaler. 2. Prednisone. 3. DuoNeb nebulizer. ALLERGIES: No known drug allergies. FAMILY HISTORY: Mother with history of hypertension. Father with an AR, at the age of 72. Father with diabetes. Sister with leukemia. SOCIAL HISTORY: The patient does report she smokes a pack a day. Reports occasional alcohol use. No illicit drug use. She is single. Surrogate decision maker in the event she is unable to make her own decisions is her boyfriend, Jc. She is a full code. REVIEW OF SYSTEMS: She denies any fever or unintended weight loss. She does report chest pain with cough and deep breath. Denies any edema. She does report cough productive with brown yellow secretions x2 weeks. She denies any hemoptysis. She does report increased shortness of breath with exertion. She reports occasional nausea and vomiting. She does report diarrhea x2 days. She does report blood in the urine and lower abdominal pain, but denies frequency, urgency, or burning with urination. Denies any visual complaints, dysphagia, arthralgias, myalgias, rashes, lesions, or open sores. Denies any psychosis or anxiety. PHYSICAL EXAMINATION GENERAL: At this time, Ms. Hope is a 33-year-old female. She is alert and oriented, resting on the stretcher in the emergency room. She is in no acute distress. VITAL SIGNS: Blood pressure 133/99, temperature 99.1, heart rate was 82 to 103 , respirations were 16 to 20, O2 saturation 99% to 96% on room air. HEENT: Head is atraumatic, normocephalic. Eyes: EOMs are intact. Sclerae anicteric and not pale. Oral mucosa appeared to be moist. NECK: Supple. LUNGS: With expiratory wheezes bilaterally. Moist congested cough noted. CARDIAC: S1, S2. Regular rate and rhythm. She is tachycardic. ABDOMEN: Soft and nontender. Bowel sounds are present x4. EXTREMITIES: She is able to move all 4 extremities with 5/5 strength. There is no clubbing or cyanosis. Pedal pulses are +2 bilaterally. NEUROLOGIC: She is awake, alert, oriented x3. Speech is clear. Thought process is intact. There are no gross focal deficits. DIAGNOSTIC STUDIES/LAB DATA: WBCs are 15.7, RBCs 5.70, hemoglobin 13.7, hematocrit was 41, platelet count was 349. Sodium 139, potassium 3.6, chloride 105, carbon dioxide was 27, anion gap was 7, BUN was 15, creatinine 0.76, glucose was 109, lactic acid 1.3, calcium 9.6. ASTs were 25, ALTs were 43, alkaline phosphatase was 81. C-reactive protein 2.52. BNP was 30. Urinalysis is currently pending. She had a chest x-ray, radiologist's impression: No active cardiopulmonary disease. ASSESSMENT AND PLAN: Ms. Hope is a 33-year-old female with a past medical history significant for asthma, who presented to the emergency room with progressively worsening shortness of breath and found to have an asthma exacerbation. She will be admitted under observation for: 1. Shortness of breath. I suspect this is related to asthma exacerbation. The patient has failed outpatient treatment with nebulization and steroids. She will be admitted and placed on DuoNeb and Solu-Medrol IV q.8 hours. I will also add ceftriaxone 1 g q.24 hours. 2. Abdominal pain. The patient does complain of lower suprapubic abdominal pain with bilateral CVA tenderness. She does report dark-colored urine. UA is currently pending at this time. The patient does have clinical correlation for urinary tract infection. I will cover her with ceftriaxone at this time. 3. Leukocytosis. The patient does have a white count of 15.7. I suspect this could be related to her recent steroid use or possible underlying infection. She will be covered with ceftriaxone 1 g q.24 hours IV. We will repeat a CBC in the a.m. 4. FEN: She can have a regular diet. 5. DVT prophylaxis: She can ambulate ad giuliana. 6. Code status: She is a full code. TIME SPENT: Time spent on this admission was approximately 60 minutes, greater than half that time was spent at the bedside reviewing the events leading thus far to her hospitalization, performing physical exam, and reviewing my plan of care. SHARMIN HARRIS NP [id number]/CPS #: [id number] DARIANA
[2019-02-08] MEDS: Acetaminophen TAB* 325 MG PO PRN (19:42)
[2019-02-08] MEDS: methylPREDNISolone SOD 40 MG* 1 ML VIAL IV SCH (19:43)
[2019-02-08] MEDS: Albuterol/Ipratropium NEB.SOL* Albuterol 2.5 MG/Ipratropium 0.5 MG 3 ML INH PRN (20:05)
[2019-02-08] MEDS: guaiFENesin LIQ* 100 MG/5 ML UDC PO PRN (22:37)
[2019-02-08] MEDS: Melatonin 3 MG TAB PO SCH (22:38)
[2019-02-08] MEDS ORDERED: traMADol TAB* 50 MG PO ONE (22:39)
[2019-02-09] MEDS: Albuterol/Ipratropium NEB.SOL* Albuterol 2.5 MG/Ipratropium 0.5 MG 3 ML INH PRN ×3 (00:10→08:04)
[2019-02-09] MEDS: methylPREDNISolone SOD 40 MG* 1 ML VIAL IV SCH ×3 (04:02→20:46)
[2019-02-09] MEDS: guaiFENesin LIQ* 100 MG/5 ML UDC PO PRN (04:02)
[2019-02-09] MEDS: Acetaminophen TAB* 325 MG PO PRN ×3 (05:09→17:57)
[2019-02-09] MEDS: NS 0.9% 1000 ML** 1,000 ML IV SCH (08:02)
[2019-02-09 08:24] LABS: ABS Lymphocytes 0.8 10^3/ul (1.0-4.8); ABS Monocytes 0.7 10^3/ul (0-0.8); ABS Neutrophils 20.3 10^3/ul (1.5-7.7); Hematocrit 38 % (35-47); Hemoglobin 12.7 g/dL (12.0-16.0); Lymphocyte % 3.5 %; Mean Corpuscular HGB Conc 33 g/dL (31-36); Mean Corpuscular Hemoglobin 25 pg (27-31); Mean Corpuscular Volume 74 fL (80-97); Mean Platelet Volume 7.8 fL (7.4-10.4); Platelet Count 298 10^3/uL (150-450); Red Blood Count 5.16 10^6 /uL (3.70-4.87); Red Cell Distribution Width 16 % (10-15); White Blood Count 21.8 10^3/uL (3.5-10.8)
[2019-02-09 08:43] LABS: Anion Gap 7 mmol/L (2-11); BUN/Creatinine Ratio 17.5 (8-20); Blood Urea Nitrogen 11 mg/dL (6-24); CO2 Carbon Dioxide 23 mmol/L (22-32); Chloride 107 mmol/L (101-111); EGFR African American 130.9 (>60); EGFR Non-African American 108.2 (>60); Glucose 159 mg/dL (70-100); Potassium 3.9 mmol/L (3.5-5.0); Sodium 137 mmol/L (135-145)
[2019-02-09] MEDS: Albuterol/Ipratropium NEB.SOL* Albuterol 2.5 MG/Ipratropium 0.5 MG 3 ML INH SCH ×4 (11:39→23:19)
[2019-02-09] MEDS: Azithromycin 500 mg/250 ml NS 500 MG/250 ML BAG IVPB SCH (12:22)
[2019-02-09 12:24] LABS: % Iron Saturation 20 % (15-55); Iron 62 ug/dL (50-212); Total Iron Binding Capacity 305 mcg/dL (250-450); Transferrin 218 mg/dL (203-362)
[2019-02-09] MEDS: guaiFENesin/CODIEN 100MG-10MG* 5 ML UDC PO PRN ×3 (12:27→23:41)
[2019-02-09 12:44] LABS: Ferritin 37.6 ng/mL (11-307)
--- NOTE | 2019-02-09 13:35 | PN ---
Subjective Date of Service: 02/09/19 Interval History: Ms. Hope is not feeling any better today. She admits to feeling a bit worse, but then asks if she is going to be discharged today. Frequent cough and difficulty taking deep breaths. Continues to have RLQ pain, extending down into her posterior right thigh when urinating. She has not been sleeping well. Denies CP, N/V. No concerns from nursing. Family History: Unchanged from Admission Social History: Unchanged from Admission Past Medical History: Unchanged from Admission Objective Active Medications: Acetaminophen (Tylenol Tab*) 650 mg PO Q4H PRN FEVER/PAIN Albuterol/Ipratropium (Duoneb (Albuterol 2.5 Mg/Ipratropium 0.5 Mg)) 1 neb INH [id number] AWAKE [facility] Benzonatate (Tessalon Cap*) 100 mg PO BID [facility] Guaifenesin (Robitussin*) 5 ml PO Q6H PRN COUGH Guaifenesin/Codeine Phosphate (Robitussin Ac 100mg-10mg*) 5 ml PO Q6H PRN COUGH Sodium Chloride (Ns 0.9% 1000 Ml) 1,000 mls @ 100 mls/hr IV PER RATE [facility] Ceftriaxone Sodium 1 gm/ (Sodium Chloride) 50 mls @ 100 mls/hr IVPB Q24H [facility] Azithromycin (Zithromax 500 Mg/250 Ml) 500 mg in 250 mls @ 250 mls/hr IVPB Q24H [facility] Melatonin (Melatonin) 3 mg PO BEDTIME [facility] Methylprednisolone Sodium Succinate (Solu-Medrol 40 Mg) 40 mg IV Q8H [facility] Vital Signs - 8 hr 02/09/19 02/09/19 02/09/19 08:00 08:07 11:15 Temperature 97.9 F 97.9 F Pulse Rate 69 90 74 Respiratory 17 17 18 Rate Blood Pressure 130/80 135/72 (mmHg) O2 Sat by Pulse 97 99 98 Oximetry 02/09/19 11:51 Temperature Pulse Rate 75 Respiratory 16 Rate Blood Pressure (mmHg) O2 Sat by Pulse 98 Oximetry Appearance: Young adult female sitting in bed in NAD, though dyspneic Eyes: No Scleral Icterus Ears/Nose/Mouth/Throat: Mucous Membranes Moist Neck: NL Appearance and Movements; NL JVP, Trachea Midline Respiratory: Symmetrical Chest Expansion and Respiratory Effort, - - Rhonchi and expiratory wheezing throughout Cardiovascular: NL Sounds; No Murmurs; No JVD, RRR Abdominal: - - RLQ tender, otherwise SNT Extremities: No Edema Neurological: Alert and Oriented x 3 Lines/Tubes/Other Access: Clean, Dry and Intact Peripheral IV Nutrition: Taking PO's Result Diagrams: 02/09/19 07:56 02/09/19 07:56 Assess/Plan/Problems-Billing Assessment: Ms. Hope is a 33 yo F with PMH of asthma with multiple hospitalizations for exacerbations; who presented to the ED with c/o SOB and was admitted for asthma exacerbation. - Patient Problems (1) Asthma exacerbation Code(s): J45.901 - UNSPECIFIED ASTHMA WITH (ACUTE) EXACERBATION Comment: - Significant rhonchi and wheezing on exam - Failed outpatient treatment on prednisone - Not clear why she has not been on an ICS - Continue Solu-Medrol, Duonebs, ceftriaxone; start mometasone, azithromycin, Tessalon, codeine (2) UTI (urinary tract infection) Comment: - WBC up today - Possible cause of abdominal pain - Urine culture pending - Continue ceftriaxone (3) DVT prophylaxis Code(s): Z29.9 - ENCOUNTER FOR PROPHYLACTIC MEASURES, UNSPECIFIED Comment: - Ambulation (4) Full code status Code(s): Z78.9 - OTHER SPECIFIED HEALTH STATUS Comment: Status and Disposition: Observation. Anticipate d/c home when medically stable. Attending: Isabelle Hung
[2019-02-09] MEDS: Mometasone 110 MCG MDI INH SCH (14:50)
[2019-02-09] MEDS: cefTRIAXone(*) 1 GM in NS 0.9% 50 ML* 50 ML IVPB SCH (17:58)
[2019-02-09] MEDS: Benzonatate CAP* 100 MG PO SCH (20:41)
[2019-02-09] MEDS: Melatonin 3 MG TAB PO SCH (22:56)
[2019-02-10] MEDS: Melatonin 3 MG TAB PO SCH ×2 (00:16→21:55)
[2019-02-10] MEDS: NS 0.9% 1000 ML** 1,000 ML IV SCH (00:17)
[2019-02-10] MEDS: Albuterol/Ipratropium NEB.SOL* Albuterol 2.5 MG/Ipratropium 0.5 MG 3 ML INH SCH ×4 (02:50→19:10)
[2019-02-10] MEDS: methylPREDNISolone SOD 40 MG* 1 ML VIAL IV SCH ×3 (04:13→20:15)
[2019-02-10 06:48] LABS: ABS Monocytes 0.8 10^3/ul (0-0.8); ABS Neutrophils 18.4 10^3/ul (1.5-7.7); Hematocrit 36 % (35-47); Lymphocyte % 5.1 %; Mean Corpuscular HGB Conc 33 g/dL (31-36); Mean Corpuscular Hemoglobin 25 pg (27-31); Mean Corpuscular Volume 74 fL (80-97); Mean Platelet Volume 7.5 fL (7.4-10.4); Nucleated Red Blood Cells % 0.1; Platelet Count 277 10^3/uL (150-450); Red Blood Count 4.89 10^6 /uL (3.70-4.87); Red Cell Distribution Width 16 % (10-15); White Blood Count 20.2 10^3/uL (3.5-10.8)
[2019-02-10] MEDS: Mometasone 110 MCG MDI INH SCH (07:28)
[2019-02-10] MEDS: Benzonatate CAP* 100 MG PO SCH ×2 (08:25→20:16)
[2019-02-10] MEDS: guaiFENesin/CODIEN 100MG-10MG* 5 ML UDC PO PRN ×2 (08:25→20:16)
--- NOTE | 2019-02-10 12:44 | PN ---
Subjective Date of Service: 02/10/19 Interval History: Ms. Hope is feeling a little better today. Still very SOB and significant dry cough. She was able to sleep better with the addition of codeine. Leg pain has resolved. Still having some abdominal pain, worse with coughing. Took a walk around the unit yesterday and was very SOB when she returned to her room. Denies CP, N/V. 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 Concerned about leukemia as she had a sister who of leukemia. No concerns from nursing. Family History: Unchanged from Admission Social History: Unchanged from Admission Past Medical History: Unchanged from Admission Objective Active Medications: Acetaminophen (Tylenol Tab*) 650 mg PO Q4H PRN FEVER/PAIN Albuterol/Ipratropium (Duoneb (Albuterol 2.5 Mg/Ipratropium 0.5 Mg)) 1 neb INH [id number] AWAKE [facility] Benzonatate (Tessalon Cap*) 100 mg PO BID JASON Guaifenesin/Codeine Phosphate (Robitussin Ac 100mg-10mg*) 5 ml PO Q6H PRN COUGH Ceftriaxone Sodium 1 gm/ (Sodium Chloride) 50 mls @ 100 mls/hr IVPB Q24H [facility] Azithromycin (Zithromax 500 Mg/250 Ml) 500 mg in 250 mls @ 250 mls/hr IVPB Q24H [facility] Melatonin (Melatonin) 3 mg PO BEDTIME [facility] Methylprednisolone Sodium Succinate (Solu-Medrol 40 Mg) 40 mg IV Q8H [facility] Mometasone Furoate (Asmanex 110 Mcg Mdi *) 1 puff INH DAILY [facility] Montelukast Sodium (Singulair Tab*) 10 mg PO BEDTIME [facility] Vital Signs - 8 hr 02/10/19 02/10/19 02/10/19 07:30 07:59 08:00 Temperature 97.0 F Pulse Rate 101 80 Respiratory 18 18 18 Rate Blood Pressure 135/75 (mmHg) O2 Sat by Pulse 99 96 Oximetry Oxygen Devices in Use Now: None Appearance: Middle-aged female sitting in bed, dyspneic, but in NAD Eyes: No Scleral Icterus Ears/Nose/Mouth/Throat: Mucous Membranes Moist Neck: NL Appearance and Movements; NL JVP, Trachea Midline Respiratory: Symmetrical Chest Expansion and Respiratory Effort, - - Rhonchi and wheezing throughout Cardiovascular: NL Sounds; No Murmurs; No JVD, RRR Abdominal: NL Sounds; No Tenderness; No Distention Extremities: No Edema Neurological: Alert and Oriented x 3 Lines/Tubes/Other Access: Clean, Dry and Intact Peripheral IV Nutrition: Taking PO's Result Diagrams: 02/10/19 06:28 02/09/19 07:56 Assess/Plan/Problems-Billing Assessment: Ms. Hope is a 33 yo F with PMH of asthma with multiple hospitalizations for exacerbations; who presented to the ED with c/o SOB and was admitted for asthma exacerbation. - Patient Problems (1) Asthma exacerbation Code(s): J45.901 - UNSPECIFIED ASTHMA WITH (ACUTE) EXACERBATION Comment: - Still with significant rhonchi and wheezing on exam - Failed outpatient treatment on prednisone - Not clear why she has not been on an ICS as an outpatient - CT chest unremarkable; d/c abx - Well's score is 0 - Mag sulfate x1 today for bronchodilation effects - Continue Solu-Medrol, Duonebs, mometasone, Tessalon, codeine (2) Leukocytosis Code(s): D72.829 - ELEVATED WHITE BLOOD CELL COUNT, UNSPECIFIED Comment: - UTI ruled out with negative urine culture - Some leukocytosis certainly secondary to steroids, though WBC remains quite high to attribute solely to steroids - Not meeting sepsis criteria and no obvious source of infection (pneumonia r/o with CT) - Continue to trend (3) Sickle cell trait Code(s): D57.3 - SICKLE-CELL TRAIT Comment: - Microcytosis without anemia - Ferritin borderline low - Start vitamin (4) DVT prophylaxis Code(s): Z29.9 - ENCOUNTER FOR PROPHYLACTIC MEASURES, UNSPECIFIED Comment: - Ambulation (5) Full code status Code(s): Z78.9 - OTHER SPECIFIED HEALTH STATUS Comment: Status and Disposition: Observation. Anticipate d/c home when medically stable. Attending: Ty Diggs
[2019-02-10] MEDS: Azithromycin 500 mg/250 ml NS 500 MG/250 ML BAG IVPB SCH (13:11)
[2019-02-10] MEDS: traMADol TAB* 50 MG PO PRN (13:11)
[2019-02-10] MEDS ORDERED: Magnesium Hydroxide LIQ* 30 ML UDC PO PRN (16:20)
[2019-02-10] MEDS ORDERED: Polyethylene Glycol 3350* 17 GM PACKET PO PRN (16:20)
[2019-02-10] MEDS ORDERED: Senna TAB PO PRN (16:20)
[2019-02-10] MEDS: Acetaminophen TAB* 325 MG PO PRN (20:15)
[2019-02-10] MEDS: Docusate CAP* 100 MG PO SCH (20:16)
[2019-02-10] MEDS: Montelukast Sodium TAB* 10 MG PO SCH (20:18)
[2019-02-10] MEDS: Prenatal Vitamin TAB PO SCH (22:36)
[2019-02-11] MEDS: Albuterol/Ipratropium NEB.SOL* Albuterol 2.5 MG/Ipratropium 0.5 MG 3 ML INH SCH ×4 (01:08→19:07)
[2019-02-11] MEDS: methylPREDNISolone SOD 40 MG* 1 ML VIAL IV SCH ×3 (03:32→20:25)
[2019-02-11] MEDS: guaiFENesin/CODIEN 100MG-10MG* 5 ML UDC PO PRN ×3 (03:32→18:15)
[2019-02-11 06:45] LABS: ABS Lymphocytes 1.1 10^3/ul (1.0-4.8); ABS Monocytes 0.6 10^3/ul (0-0.8); ABS Neutrophils 18.3 10^3/ul (1.5-7.7); Hematocrit 39 % (35-47); Hemoglobin 12.8 g/dL (12.0-16.0); Lymphocyte % 5.5 %; Mean Corpuscular HGB Conc 33 g/dL (31-36); Mean Corpuscular Hemoglobin 24 pg (27-31); Mean Corpuscular Volume 74 fL (80-97); Mean Platelet Volume 7.5 fL (7.4-10.4); Platelet Count 294 10^3/uL (150-450); Red Blood Count 5.32 10^6 /uL (3.70-4.87); Red Cell Distribution Width 17 % (10-15); White Blood Count 20.1 10^3/uL (3.5-10.8)
[2019-02-11] MEDS: Mometasone 110 MCG MDI INH SCH (08:24)
[2019-02-11] MEDS: Docusate CAP* 100 MG PO SCH ×2 (08:41→20:29)
[2019-02-11] MEDS: Benzonatate CAP* 100 MG PO SCH ×2 (08:41→20:29)
[2019-02-11] MEDS: Prenatal Vitamin TAB PO SCH (08:41)
[2019-02-11] MEDS: traMADol TAB* 50 MG PO PRN ×2 (10:45→18:15)
[2019-02-11] MEDS ORDERED: Magnesium Sulfate 1 GM IV* 1 GM/100 ML BAG IV ONE (11:00)
[2019-02-11] MEDS ORDERED: Albuterol 2.5 MG/3 ML NEB.SOL* (0.083%) INH ONE (11:05)
[2019-02-11] MEDS: LORazepam TAB(*) 0.5 MG PO PRN ×2 (11:12→22:22)
[2019-02-11 13:34] LABS: Neisseria gonorrhoeae (GC) RNA Negative (Negative)
[2019-02-11] MEDS: Albuterol 2.5 MG/3 ML NEB.SOL* (0.083%) INH PRN ×2 (15:52→22:25)
--- NOTE | 2019-02-11 17:34 | PN ---
Subjective Date of Service: 02/11/19 Interval History: Patient seen and examined. Patient requesting to be discharged, but she is still very wheezy and coughing. Immediately after exam, patient became acutely SOB and diaphoretic and required stat nebulized albuterol. Family History: Unchanged from Admission Social History: Unchanged from Admission Past Medical History: Unchanged from Admission Objective Active Medications: Acetaminophen (Tylenol Tab*) 650 mg PO Q4H PRN PRN Reason: FEVER/PAIN Last Admin: 02/10/19 20:15 Dose: 650 mg Albuterol (Ventolin 2.5 Mg/3 Ml Neb.Yadira*) 2.5 mg INH Q2H PRN PRN Reason: SOB/WHEEZING Last Admin: 02/11/19 15:52 Dose: 2.5 mg Albuterol/Ipratropium (Duoneb (Albuterol 2.5 Mg/Ipratropium 0.5 Mg)) 1 neb INH [id number] AWAKE [facility] Last Admin: 02/11/19 13:17 Dose: Not Given Benzonatate (Tessalon Cap*) 100 mg PO BID [facility] Last Admin: 02/11/19 08:41 Dose: 100 mg Docusate Sodium (Colace Cap*) 100 mg PO BID [facility]AS[facility] Last Admin: 02/11/19 08:41 Dose: 100 mg Guaifenesin/Codeine Phosphate (Robitussin Ac 100mg-10mg*) 5 ml PO Q6H PRN PRN Reason: COUGH Last Admin: 02/11/19 10:45 Dose: 5 ml Lorazepam (Ativan Tab(*)) 0.5 mg PO Q6H PRN PRN Reason: ANXIETY Last Admin: 02/11/19 11:12 Dose: 0.5 mg Magnesium Hydroxide (Milk Of Magnesia Liq*) 30 ml PO BID PRN PRN Reason: CONSTIPATION Melatonin (Melatonin) 3 mg PO BEDTIME [facility] Last Admin: 02/10/19 21:55 Dose: 3 mg Methylprednisolone Sodium Succinate (Solu-Medrol 40 Mg) 40 mg IV Q8H [facility] Last Admin: 02/11/19 13:25 Dose: 40 mg Mometasone Furoate (Asmanex 110 Mcg Mdi *) 1 puff INH DAILY [facility] Last Admin: 02/11/19 08:24 Dose: 1 puff Montelukast Sodium (Singulair Tab*) 10 mg PO BEDTIME [facility] Last Admin: 02/10/19 20:18 Dose: 10 mg Multivitamins ( Vitamin Tab*) 1 tab PO BEDTIME [facility] Polyethylene Glycol/Electrolytes (Miralax*) 17 gm PO DAILY PRN PRN Reason: CONSTIPATION Last Admin: 02/11/19 08:47 Dose: 17 gm Senna (Senokot Tab*) 1 tab PO BEDTIME PRN PRN Reason: CONSTIPATION Last Admin: 02/11/19 08:47 Dose: 1 tab Tramadol HCl (Ultram*) 50 mg PO Q8H PRN PRN Reason: PAIN Last Admin: 02/11/19 10:45 Dose: 50 mg Vital Signs - 8 hr 02/11/19 02/11/19 02/11/19 10:45 11:10 11:12 Temperature Pulse Rate 79 Respiratory 18 18 24 Rate Blood Pressure (mmHg) O2 Sat by Pulse 99 Oximetry 02/11/19 02/11/19 02/11/19 11:15 13:32 13:45 Temperature 98.7 F Pulse Rate 82 Respiratory 18 18 18 Rate Blood Pressure 120/53 (mmHg) O2 Sat by Pulse 96 Oximetry 02/11/19 15:52 Temperature Pulse Rate 72 Respiratory 18 Rate Blood Pressure (mmHg) O2 Sat by Pulse 99 Oximetry Oxygen Devices in Use Now: Nasal Cannula Appearance: alert, moderate distress Eyes: No Scleral Icterus, PERRLA Ears/Nose/Mouth/Throat: NL Teeth, Lips, Gums Neck: NL Appearance and Movements; NL JVP Respiratory: - - bilateral insp/exp wheeze with course breath sounds 1/2 up the bases Cardiovascular: NL Sounds; No Murmurs; No JVD, - - mild tachycardia Extremities: No Edema Skin: No Rash or Ulcers Neurological: Alert and Oriented x 3 Nutrition: Taking PO's Result Diagrams: 02/11/19 06:11 02/09/19 07:56 Microbiology and Other Data: Microbiology 02/08/19 16:55 Urine Culture - Final Urine No Growth (<1,000 CFU/mL) Diagnostic Imaging: Patient Name: VISH HOPE Medical Record#: [id number] Ordering Physician: Felipe Mayfield MD Acct.#: [id number] : 1985 Age: 33 Sex: F Location: EMERGENCY DEPARTMENT Exam Date: 02/08/19 1341 ADM Status: REG ER Order Information: CHEST PA & LAT 2 VWS Accession Number: [id number] CPT: 09253 HISTORY: SOB COMPARISONS: April 21, 2018 VIEWS: 4: Frontal dual-energy and lateral views of the chest. FINDINGS: CARDIOMEDIASTINAL SILHOUETTE: The cardiomediastinal silhouette is normal. WYATT: The wyatt are normal. PLEURA: The costophrenic angles are sharp. No pleural abnormalities are noted. LUNG PARENCHYMA: The lungs are clear. ABDOMEN: The upper abdomen is clear. There is no subphrenic gas. BONES AND SOFT TISSUES: No bone or soft tissue abnormalities are noted. OTHER: None. IMPRESSION: NO ACTIVE CARDIOPULMONARY DISEASE. <Electronically signed by Gaurav Burnett MD in [place]> 02/08/19 1432 Dictated By: Gaurav Burnett MD Dictated Date/Time: 02/08/19 1432 Transcribed Date/Time: 02/08/19 1431 Copy to: Assess/Plan/Problems-Billing Assessment: Ms. Hope is a 33 yo F with PMH of asthma with multiple hospitalizations for exacerbations; who presented to the ED with c/o SOB and was admitted for asthma exacerbation. - Patient Problems (1) Asthma exacerbation Code(s): J45.901 - UNSPECIFIED ASTHMA WITH (ACUTE) EXACERBATION SNOMED Code(s) : 110906927 Comment: - Still with significant rhonchi and wheezing on exam and acute SOB today - Failed outpatient treatment on prednisone - No consolidation on imaging - Well's score is 0 - Continue Solu-Medrol, Duonebs, mometasone, Tessalon, codeine, additional magnesium sulfate today and PRN albuterol, PRN O2 - Ativan low dose PRN also added, as patient does appear to be emotionally triggered - Will need close outpatient followup, has no PCP (2) Leukocytosis Code(s): D72.829 - ELEVATED WHITE BLOOD CELL COUNT, UNSPECIFIED SNOMED Code(s) : 752685202 Comment: - UTI ruled out with negative urine culture - No fevers, no UTI, likley all driven by steroids (outpatient prednisone and now IV solumedrol) - Not meeting sepsis criteria and no obvious source of infection (pneumonia r/ o with CT) - Continue to trend (3) Sickle cell trait Code(s): D57.3 - SICKLE-CELL TRAIT SNOMED Code(s): 21709625 Comment: - Microcytosis without anemia - Ferritin borderline low - Start vitamin (4) DVT prophylaxis Code(s): Z29.9 - ENCOUNTER FOR PROPHYLACTIC MEASURES, UNSPECIFIED SNOMED Code( s): 891352417 Comment: - Ambulation (5) Full code status Code(s): Z78.9 - OTHER SPECIFIED HEALTH STATUS SNOMED Code(s): 028229337 Comment: Status and Disposition: Inpatient. Anticipate d/c home when medically stable.
[2019-02-11] MEDS: Montelukast Sodium TAB* 10 MG PO SCH (20:29)
[2019-02-11] MEDS ORDERED: Prenatal Vitamin TAB PO SCH (21:00)
[2019-02-11] MEDS: Melatonin 3 MG TAB PO SCH (22:22)
[2019-02-12] MEDS: Albuterol/Ipratropium NEB.SOL* Albuterol 2.5 MG/Ipratropium 0.5 MG 3 ML INH SCH ×2 (00:52→07:08)
[2019-02-12] MEDS: guaiFENesin/CODIEN 100MG-10MG* 5 ML UDC PO PRN ×2 (02:38→08:41)
[2019-02-12] MEDS: Albuterol 2.5 MG/3 ML NEB.SOL* (0.083%) INH PRN (02:47)
[2019-02-12] MEDS: methylPREDNISolone SOD 40 MG* 1 ML VIAL IV SCH (03:03)
[2019-02-12] MEDS: LORazepam TAB(*) 0.5 MG PO PRN (04:13)
[2019-02-12] MEDS: Mometasone 110 MCG MDI INH SCH (07:10)
[2019-02-12 07:58] VITALS: BP 132/66
[2019-02-12] MEDS: Benzonatate CAP* 100 MG PO SCH (08:41)
[2019-02-12] MEDS: Docusate CAP* 100 MG PO SCH (08:42)
[2019-02-12 10:28] LABS: Hematocrit 42 % (35-47); Hemoglobin 14.2 g/dL (12.0-16.0); Mean Corpuscular HGB Conc 34 g/dL (31-36); Mean Corpuscular Hemoglobin 25 pg (27-31); Mean Corpuscular Volume 74 fL (80-97); Mean Platelet Volume 7.5 fL (7.4-10.4); Platelet Count 315 10^3/uL (150-450); Red Cell Distribution Width 16 % (10-15); White Blood Count 21.3 10^3/uL (3.5-10.8)
--- NOTE | 2019-02-14 10:09 | DS ---
CC: Dr. Ty Diggs; Dr. Brianna Torres, [facility]; Dr. Jc Thomas DISCHARGE SUMMARY: DATE OF ADMISSION: 02/08/19 DATE OF DISCHARGE: 02/12/19 PRIMARY CARE PHYSICIAN: None. ATTENDING PHYSICIAN: Dr. Jc Thomas. HOSPITAL COURSE: Ms. Hope is a 33-year-old female with a history significant for asthma. She has b een uncontrolled at home and not on preventive measures for her asthma. She has been asthmatic since child and she has had exacerbations in the past, particularly over this past winter. They have been increasing in frequency and severity. She went to Urgent Care on 02/04/19, and at that time, she re ceived DuoNeb and a prednisone taper. She was told that allergies had triggered her most recent exac erbation. She had failed her outpatient treatment for exacerbation, also had increasing secretions a nd cough and then came to the emergency room for evaluation. The patient had also been reporting raoul e abdominal pain radiating to her flanks at that time. In the emergency department, she was found to have a white count of 15.7, which was unclear if it was related to infection process versus predniso ne use. She was given [id number] nebulizer treatments, treated with IV Solu-Medrol. She had some improvement, but still had a significant amount of coughing and shortness of breath. She was initial ly admitted to observation; however, she continued to have very slow progress. She initially was alphonso en off IV steroids while she was hospitalized and placed on oral prednisone; however, she had 2 episo monalisa of increased shortness of breath with coughing and desaturations. She was placed on O2 via nasal cannula and given [id number] albuterol nebulizers by respiratory therapy and responded very well. She was placed back on IV Solu-Medrol 40 mg q.8 hours for the next 24 hours and again had improved s aturations, less coughing, and decrease in shortness of breath and increase in endurance. She on the day of discharge was able to ambulate without assistance, without desaturations, and reported feelin g improved. Overall, her tachypnea which was also persistent throughout the course of her hospitaliz ation also improved and she felt she was ready to go home. We did have a very lengthy conversation a bout managing her asthma symptoms more proactively and the importance of primary care. The patient wa s agreeable for a referral to the [facility] and starting on preventive therapy as an ou tpatient. Also during the time of the patient's desaturations, we felt that anxiety was playing a pa rt in some of her coughing fits and desats. We did place her on low-dose Ativan while she was acutel y hospitalized which did seem to help with some of her coughing fits. The patient does appear very n ervous when she was desatting and low-dose Ativan did seem to help significantly while she was acutel y hospitalized. For the patient's abdominal pain, because she was complaining of some abdominal pain as well as her shortness of breath at admission, urinalysis was done as well as urine cultures, did not reveal any urinary tract infection and CTA of the abdomen and pelvis was negative for any acute p rocess. She is a also a carrier of sickle cell trait. She currently has some microcytosis but without overt anemia. She was started on a vitamin, ferritin was borderline low. She did not appear to b e in acute sick cell crisis even though she was having significant shortness of breath. Her fluid st atus was adequate during her hospitalization. In terms of her increased leukocytosis, she was on pro longed steroids prior to her admission and then on IV steroids. She did not have a fever, and there was no obvious source of infection. She did not have a pneumonia or consolidation on her chest x-ray , also her CT was clear and her urinalysis was clear. REVIEW OF SYSTEMS: On the day of discharge, the patient denies any fever, fatigue, or chills. She d oes endorse cough productive of only clear sputum which is infrequent. She denies any acute shortnes s of breath. No chest pain, no abdominal pain, no urinary symptoms, no bowel complaints, no arthralg ias or myalgias, and no further constitutional complaints. PHYSICAL EXAMINATION: Reveals a well-appearing woman in no acute distress. Her vital signs are, blo od pressure 132/66, heart rate 77, respiratory rate 16, O2 saturation 97% on room air with a temperat ure of 97.9. HEENT: The patient is atraumatic, normocephalic, PERRLA, nonicteric sclerae. Oral muc macey is moist. Tongue is midline. Neck is supple, nontender. No thyromegaly appreciated. Cardiovascu lar: S1, S2 present. No murmurs, gallops, or rubs noted. Rate and rhythm are regular. Lungs are c lear at the apices. She is diminished at the bases. She does have some scattered rhonchi with an ex piratory wheeze on the right with improvement on the left. She has good air entry bilaterally. Abdo men is soft, nontender, nondistended. Positive bowel sounds in all 4 quadrants. is deferred. Mu sculoskeletal: There is no clubbing, no cyanosis, no edema. She has brisk cap refill. Full range o f motion. Steady gait. Neurologic: Grossly intact with no focal deficits. Psychiatric: She is co operative and appropriate. LABORATORY DATA: WBC is 21.3, RBC is 5.70, hemoglobin 14.2, hematocrit 42, platelets 315. Sodium 13 7, potassium 3.9, CO2 of 23, BUN 11, creatinine 0.63, GFR 130.9, BUN creatinine ratio 17.5, glucose 1 59, lactic acid 1.3, calcium 9.0, magnesium 1.9, iron 62, TIBC 305, percent saturation 20, unsaturate d iron binding less than 290, transferrin 218, ferritin 37.6, total bilirubin 0.50, AST 25, ALT 43, a lk phos 81, CRP 2.52, BNP 30, total protein 7.4, albumin 4.2, globulin 3.2, albumin globulin ratio 1. 3. Urinalysis showed 1+ protein, negative for ketones, 3+ blood, negative for nitrites and bilirubin , negative for leukocyte esterase. Trace wbc's, 2+ rbc's, 1+ bacteria. Serology: Trichomonas was n egative, gonorrhea was also negative. IMAGING: CT of the abdomen and pelvis showed no acute abdominal pelvic pathologic process evident. Chest CT showed no acute pathology of the chest. Chest x-ray on 02/08/19 showed no active cardiopulm onary disease. DISCHARGE DIAGNOSES: 1. Acute asthma with exacerbation. 2. Leukocytosis. 3. History of sickle cell trait. 4. Abdominal pain. DISCHARGE MEDICATIONS: Include: 1. Prednisone taper 40 mg daily, decrease by 10 mg every 3 days until complete. 2. vitamin 1 tablet daily at bedtime. 3. Singulair 10 mg in the evening. 4. Asmanex 1 puff inhaled daily. 5. Tessalon 100 mg p.o. b.i.d. 6. Albuterol nebulizer 2.5 mg 1 neb inhaled q.6 hours as needed. 7. Albuterol rescue inhaler 2 puffs q.6 hours as needed for shortness of breath. DIET: Regular as tolerated. ACTIVITY: Progress activity as tolerated. FOLLOWUP: The patient was instructed to follow up with the [facility] after discharge. Referral was made. We recommend that she have followup lab work to ensure resolution of her leukocy tosis and continued resolution of her wheezing and shortness of breath has completely improved. The patient was discharged in stable condition to home. As stated above, the patient described her under standing of her discharge medications and followups. TIME SPENT: 45 minutes on discharge planning, medications, and counseling. CHRISTEL DOWD NP [id number]/[facility] #: [id number]
== END 2019-02-12 11:50 | disposition home or self-care (01) | DRG 141 ==
LOC: ED 11:41 → MED 16:25 → OBSVTOIN 02-11 11:00
PROVIDERS: ADMIT Internal Medicine; ATTEND Internal Medicine
DX: J45.901 Unspecified asthma with (acute) exacerbation (principal); D72.829 Elevated white blood cell count, unspecified; D57.3 Sickle-cell trait; R10.30 Lower abdominal pain, unspecified; F32.9 Major depressive disorder, single episode, unspecified; Z72.89 Other problems related to lifestyle; Z87.891 Personal history of nicotine dependence; Z80.6 Family history of leukemia; Z82.49 Family history of ischemic heart disease and other diseases of the circulatory system; Z83.3 Family history of diabetes mellitus; Z82.5 Family history of asthma and other chronic lower respiratory diseases; Z90.79 Acquired absence of other genital organ(s)
CPT/HCPCS: 36415; 71046; 71250; 74176; 80048; 80053; 81003; 81015; 82728; 83540; 83550; 83605; 83735; 83880; 85025; 85027; 86140; 87086; 87491; 87591; 94640; 99285; A9270-GY; G0378; J0456; J0696; J1885; J2270; J2920; J2930; J3475

== ENCOUNTER 2019-08-22 18:17 | Emergency (ER) | payer OTHER ==
[2019-08-22] MEDS ORDERED: Acetaminophen TAB* 325 MG PO ONE (18:45)
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
[2019-08-22] MEDS ORDERED: oxyCODONE/Acetamin 5/325 MG* TAB PO ONE (19:38)
[2019-08-22 19:50] LABS: ABS Basophils 0.1 10^3/ul (0-0.2); ABS Lymphocytes 1.4 10^3/ul (1.0-4.8); ABS Monocytes 0.9 10^3/ul (0-0.8); ABS Neutrophils 18.3 10^3/ul (1.5-7.7); Eosinophil % 0.1 %; Hematocrit 42 % (35-47); Hemoglobin 13.8 g/dL (12.0-16.0); Lymphocyte % 6.8 %; Mean Corpuscular HGB Conc 33 g/dL (31-36); Mean Corpuscular Hemoglobin 25 pg (27-31); Mean Corpuscular Volume 74 fL (80-97); Mean Platelet Volume 7.1 fL (7.4-10.4); Platelet Count 375 10^3/uL (150-450); Red Blood Count 5.64 10^6 /uL (3.70-4.87); Red Cell Distribution Width 16 % (10-15); White Blood Count 20.7 10^3/uL (3.5-10.8)
[2019-08-22 20:06] LABS: Albumin 4.3 g/dL (3.2-5.2); Albumin/Globulin Ratio 1.5 (1-3); BUN/Creatinine Ratio 15.2 (8-20); Calcium 9.2 mg/dL (8.6-10.3); EGFR African American 77.2 (>60); EGFR Non-African American 63.8 (>60); Globulin 2.9 g/dL (2-4); Potassium 3.2 mmol/L (3.5-5.0); Total Bilirubin 1.2 mg/dL (0.2-1.0); Total Protein 7.2 g/dL (6.4-8.9)
[2019-08-22 20:12] LABS: HCG Pregnancy 1.53 mIU/mL
[2019-08-22 21:15] VITALS: BP 138/100
== END 2019-08-22 21:15 | disposition home or self-care (01) ==
LOC: ED 18:17
DX: M79.601 Pain in right arm (principal); Y04.8XXA Assault by other bodily force, initial encounter; Y92.009 Unspecified place in unspecified non-institutional (private) residence as the place of occurrence of the external cause; D57.3 Sickle-cell trait; J45.909 Unspecified asthma, uncomplicated; Z87.891 Personal history of nicotine dependence
CPT/HCPCS: 36415; 70450; 72125; 80053; 84702; 85025; 99282; A9270-GY

== ENCOUNTER 2020-03-11 12:10 | Observation (INO) ==
[2020-03-11] MEDS ORDERED: methylPREDNISolone 125 mg 2 ML VIAL IV ONE (12:19)
[2020-03-11] MEDS ORDERED: Albuterol/Ipratropium NEB.SOL (2.5/0.5 MG) 3 ML NEB.SOLN INH ONE ×2 (12:19→15:38)
[2020-03-11] MEDS ORDERED: NS 0.9% 1000 ml BAG 1,000 ML IV ONE (12:36)
[2020-03-11] MEDS ORDERED: Albuterol 2.5mg/3 ml (0.083%) NEB.SOLN INH ONE ×2 (13:24→14:08)
[2020-03-11] MEDS ORDERED: Fluticasone NASAL SPRAY 50MCG 16 gm SPRAY BTL BOTH NARES ONE (14:08)
[2020-03-11] MEDS ORDERED: Magnesium Sulfate IV 1GM/100ML 1 GM/100 ML BAG IV ONE (14:08)
[2020-03-11 16:57] LABS: ABS Eosinophils 0.1 10^3/ul (0-0.6); ABS Lymphocytes 1.6 10^3/ul (1.0-4.8); ABS Monocytes 0.9 10^3/ul (0-0.8); ABS Neutrophils 8.1 10^3/ul (1.5-7.7); Eosinophil % 0.9 %; Hematocrit 40 % (35-47); Hemoglobin 13.7 g/dL (12.0-16.0); Lymphocyte % 15.2 %; Mean Corpuscular HGB Conc 34 g/dL (31-36); Mean Corpuscular Hemoglobin 26 pg (27-31); Mean Corpuscular Volume 76 fL (80-97); Mean Platelet Volume 8.3 fL (7.4-10.4); Nucleated Red Blood Cells % 0.1; Platelet Count 340 10^3/uL (150-450); Red Blood Count 5.34 10^6 /uL (3.70-4.87); Red Cell Distribution Width 15 % (10-15); White Blood Count 10.8 10^3/uL (3.5-10.8)
[2020-03-11 17:05] LABS: Albumin 4.3 g/dL (3.2-5.2); Albumin/Globulin Ratio 1.4 (1-3); BUN/Creatinine Ratio 11.4 (8-20); Calcium 9.4 mg/dL (8.6-10.3); EGFR African American 88.5 (>60); EGFR Non-African American 73.1 (>60); Total Bilirubin 0.2 mg/dL (0.2-1.0); Total Protein 7.3 g/dL (6.4-8.9)
[2020-03-11] MEDS ORDERED: Albuterol/Ipratropium NEB.SOL (2.5/0.5 MG) 3 ML NEB.SOLN INH PRN (18:19)
[2020-03-11] MEDS: Albuterol/Ipratropium NEB.SOL (2.5/0.5 MG) 3 ML NEB.SOLN INH SCH (21:38)
[2020-03-12] MEDS ORDERED: Fluticasone NASAL SPRAY 50MCG 16 gm SPRAY BTL BOTH NARES SCH
[2020-03-12] MEDS: Albuterol/Ipratropium NEB.SOL (2.5/0.5 MG) 3 ML NEB.SOLN INH SCH ×4 (00:49→13:47)
[2020-03-12] MEDS: guaiFENesin/CODIENE 100mg/10mg 5 ML UDC PO PRN ×2 (03:49→10:25)
[2020-03-12 12:27] VITALS: BP 118/77
== END 2020-03-12 15:05 | disposition home or self-care (01) ==
LOC: MED 12:10 → ED 12:10 → MED 21:03
PROVIDERS: ADMIT Internal Medicine; ATTEND Internal Medicine